=== PATIENT | female | born 1985 | race Hispanic/Latino ===

== ENCOUNTER 2020-03-29 07:08 | Emergency (ER) | payer SELFPAY ==
--- OUTSIDE RECORDS SUMMARY | 2020-03-29 07:11 | XMS REPORT | Summary of Care ---
:1985 Author Organization [facility] - [facility] Address [address] [place] [address] Care Team Providers Name Role Phone Mima Hilario [facility] Primary Care Provider [phone] Encounter Details Date Type Department Care Team Description 02/04/2020 Orders Only [facility] Doctor Unassigned, No [address] [facility] [place] [address] [address] [place] [address] Allergies Active Allergy Reactions Severity Noted Date Comments Penicillins Hives 04/01/2018 documented as of this encounter (statuses as of 02/04/2020) Medications No known medicationsdocumented as of this encounter (statuses as of 02/04/2020) Active Problems Problem Noted Date Contraceptive management 04/01/2018 IUD (intrauterine device) in place 04/01/2018 Well woman exam 10/18/2016 History of anemia 10/18/2016 Irregular menstrual cycle 10/18/2016 Obesity (BMI 30-39.9) 11/12/2012 Overview: ICD10 Diagnosis Term Dynamite Cartridge 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 Utility Tobacco use disorder 11/12/2012 documented as of this encounter (statuses as of 02/04/2020) Resolved Problems Problem Noted Date Resolved Date delivery delivered 09/20/2010 11/12/2012 Overview: ICD10 Diagnosis Term Dynamite Cartridge Crimper Utility documented as of this encounter (statuses as of 02/04/2020) Immunizations Name Administration Dates Next Due Td 09/19/2010 documented as of this encounter Social History Tobacco Use Types Packs/Day Years Used Date Current Some Day Smoker Cigarettes 0.1 6 Smokeless Tobacco: Never Used Comments: 3 cigarettes per day Alcohol Use Drinks/Week oz/Week Comments Yes 0 Standard drinks or equivalent 0.0 the weekends about 7 beers total Sex Assigned at Date Recorded Not on file Job Start Date Occupation Industry Not on file Not on file Not on file Travel History Travel Start Travel End No recent travel history available. documented as of this encounter Last Filed Vital Signs Not on filedocumented in this encounter Plan of Treatment Health Maintenance Due Date Last Done Comments VARICELLA VACCINES (1 of 2 1988 - 2-dose childhood series) DTaP,Tdap,and Td Vaccines 1998 09/19/2010 (1 - Tdap) Depression Screening 1999 INFLUENZA VACCINE (Season 05/03/2020 Ended) PAP SMEAR 04/01/2023 04/01/2018, 04/01/2018, 10/18/2016, Additional history exists PNEUMOCOCCAL 0-64 YEARS Aged Out No longe r eligible COMBINED SERIES based on patient 's age to complete this topic documented as of this encounter Procedures Procedure Name Priority Date/Time Associated Diagnosis Comme nts ASSIGNMENT OF BENEFITS Routine 02/04/2020 9:48 AM CDT documented in this encounter Results Not on filedocumented in this encounter Insurance Payer Benefit Plan Subscriber ID Effective Phone Address Typ e / Group Dates [facility] xxxxxxxxx 2016-Prese [phone] Medicaid WOMEN nt [address] [place] [address] documented as of this encounter Advance Directives Name Relationship Healthcare Agent Relationship Co mmunication Olimpia Torres Mother Primary healthcare agent
--- OUTSIDE RECORDS SUMMARY | 2020-03-29 07:11 | XMS REPORT | Continuity of Care Document ---
:1985 Author Organization [facility] t Address [address] [place] [address] Care Team Providers Name Role Phone Nnamdi Ramos MATA Attending Clinician Doctor Unassigned, Name Attending Clinician Unavailable Problems This patient has no known problems. Allergies, Adverse Reactions, Alerts This patient has no known allergies or adverse reactions. Medications This patient has no known medications. Procedures This patient has no known procedures. Encounters Start End Encounter Admission Attending Care Care Encounter Source Date/Time Date/Time Type Type Clinicians Facility Department ID 2020-02-15 2020-02-15 Office MARISOL Coto [id number] 08:43:54 09:49:43 Visit Avelina Beasley FINISHING AND SHIPPING SUPERVISOR [id number] [facility] [id number] MATERNAL [id number] & CHILD [address] [place] [address] 2020-02-15 2020-02-15 Orders Doctor MICHAEL [id number] 00:00:00 00:00:00 Only Unassigned, HUMA [id number] [place] [facility] [id number] Results This patient has no known results.
--- OUTSIDE RECORDS SUMMARY | 2020-03-29 07:12 | XMS REPORT | Summary of Care ---
:1985 Author Organization [facility] Address [address] [place] [address] Care Team Providers Name Role Phone Mima Hilario [facility] Primary Care Provider [phone] Reason for Visit Reason Comments Appointment started on cycle, asking if she needs to reschedule appt Encounter Details Date Type Department Care Team Description 02/12/2020 Telephone [facility]- Mima Hilario [place] ointment (started OPAL Tenorio on cycle, asking if [address] [place] [address] she needs to [address] ALE A reschedule appt) [place], [place] [id number] [phone] Allergies Active Allergy Reactions Severity Noted Date Comments Penicillins Hives 04/01/2018 documented as of this encounter (statuses as of 02/12/2020) Medications No known medicationsdocumented as of this encounter (statuses as of 02/12/2020) Active Problems Problem Noted Date Contraceptive management 04/01/2018 IUD (intrauterine device) in place 04/01/2018 Well woman exam 10/18/2016 History of anemia 10/18/2016 Irregular menstrual cycle 10/18/2016 Obesity (BMI 30-39.9) 11/12/2012 Overview: ICD10 Diagnosis 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 Utility Tobacco use disorder 11/12/2012 documented as of this encounter (statuses as of 02/12/2020) Resolved Problems Problem Noted Date Resolved Date delivery delivered 09/20/2010 11/12/2012 Overview: ICD10 Diagnosis 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 Utility documented as of this encounter (statuses as of 02/12/2020) Immunizations Name Administration Dates Next Due Td 09/19/2010 documented as of this encounter Social History Tobacco Use Types Packs/Day Years Used Date Current Some Day Smoker Cigarettes 0.1 6 Smokeless Tobacco: Never Used Comments: 3 cigarettes per day Alcohol Use Drinks/Week oz/Week Comments Yes 0 Standard drinks or equivalent 0.0 occasional Sex Assigned at Date Recorded Not on file Job Start Date Occupation Industry Not on file Not on file Not on file Travel History Travel Start Travel End No recent travel history available. COVID-19 Exposure Response Date Recorded In the last month, have you been in contact with No / Unsure 02/04/2020 10:08 AM CDT someone who was confirmed or suspected to have Coronavirus / COVID-19? documented as of this encounter Last Filed Vital Signs Not on filedocumented in this encounter Plan of Treatment Date Type Specialty Care Team Description 02/15/2020 Office Visit OB Satellites Avelina Coto, BLOWING ENGINEER [address] [place], [place] [address] [phone] Health Maintenance Due Date Last Done Comments VARICELLA VACCINES (1 of 2 - 1988 2-dose childhood series) PNEUMOCOCCAL 0-64 YEARS COMBINED 1993 SERIES (1 of 1 - PPSV23) DTaP,Tdap,and Td Vaccines (1 - 1998 09/19/2010 Tdap) INFLUENZA VACCINE (Season Ended) 2020 Depression Screening 02/03/2021 02/04/2020 PAP SMEAR 04/01/2023 04/01/2018, 04/01/2018, 10/18/2016, Additional history exists documented as of this encounter Results Not on filedocumented in this encounter Insurance Payer Benefit Plan Subscriber ID Effective Phone Address Typ e / Group Dates [facility] xxxxxxxxx 2016-Prese [phone] [address] Medicaid WOMEN nt [address] [place] [address] documented as of this encounter Advance Directives Name Relationship Healthcare Agent Relationship Co mmunication Olimpia Torres Mother Primary healthcare agent
--- OUTSIDE RECORDS SUMMARY | 2020-03-29 07:12 | XMS REPORT | Summary of Care ---
:1985 Author Organization [facility] Address [address] [place] [address] Care Team Providers Name Role Phone Mima Hilario [facility] Primary Care Provider [phone] Reason for Visit Reason Comments Well Woman Exam Encounter Details Date Type Department Care Team Description 02/04/2020 Office Visit [facility]- Luis Hilario, [facility] [address] [facility] [place], [place] [id number] Well woman exam (Primary Dx); Annelise Serna, [facility] [address] [facility] [address] [place] [address] [phone] IUD (intrauterine device) in place; [address] [place] Provider, [facility] Tem Obesity (BMI 30-39.9); Street Tobacco use disorder; [place], [place] Patient desires [phone] Allergies Active Allergy Reactions Severity Noted Date [...] (BMI 30-39.9) 11/12/2012 Overview: ICD10 Diagnosis Term 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 Utility Tobacco use disorder 11/12/2012 documented as of this encounter (statuses as of 02/04/2020) Resolved Problems Problem Noted Date Resolved Date delivery delivered 09/20/2010 11/12/2012 Overview: ICD10 Diagnosis Term 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 Utility documented as of this encounter (statuses as of 02/04/2020) Immunizations Name Administration Dates Next Due Td 09/19/2010 documented as of this encounter Social History Tobacco Use Types Packs/Day Years Used Date Current Some Day Smoker Cigarettes 0.1 6 Smokeless Tobacco: Never Used Tobacco Cessation: Counseling Given: Yes Comments: 3 cigarettes per day Alcohol Use [...] of this encounter Last Filed Vital Signs Vital Sign Reading Time Taken Comments Blood Pressure 138/91 02/04/2020 10:09 AM CDT Pulse 73 02/04/2020 10:09 AM CDT Temperature 36.3 C (97.4 F) 02/04/2020 10:09 AM CDT Respiratory Rate 16 02/04/2020 10:09 AM CDT Oxygen Saturation - - Inhaled Oxygen Concentration - - Weight 79.6 kg (175 lb 7 oz) 02/04/2020 10:09 AM CDT Height 152.4 cm (5') 02/04/2020 10:09 AM CDT Body Mass Index 34.26 02/04/2020 10:09 AM CDT documented in this encounter Progress Notes Annelise Feng, OPAL - 02/04/2020 9:45 AM CDT Chief complaint: Chief Complaint Patient presents with Well Woman Exam HPI Patient presents for WWE. She is not due for cervical cancer screening today. Patient has IUD in place at this time but would like it removed as she desires . I advised that she should begin taking PNVs to prepare for . I also discussed tobacco cessation. Histories OB History Para Term AB Living 2 2 2 2 SAB TAB Ectopic Multiple Live Births 2 # Outcome Date GA Lbr Jaspal/2nd Weight Sex Delivery Anes PTL Lv 2 Term 1 Term Past Medical History: Diagnosis Date Anemia unsure History of anemia 10/18/2016 Irregular menstrual cycle 12/2017 ongoing STD (sexually transmitted disease) Chlamydia; both patient and partner treated 2003 Vision impairment wears glasses Family History Problem Relation Age of Onset Heart Father CT High cholesterol Father Breast Cancer Maternal Grandmother <50yrs No Significant Medical Problems Mother No Significant Medical Problems Sister No Significant Medical Problems Brother No Significant Medical Problems Maternal Aunt Colon Cancer Maternal Uncle No Significant Medical Problems Paternal Uncle Arthritis NoFHx Asthma NoFHx defects NoFHx Ovarian Cancer NoFHx Uterine Cancer NoFHx Cancer NoFHx Depression NoFHx Diabetes NoFHx Genetic NoFHx Hypertension NoFHx Mental retardation NoFHx Neurological NoFHx Osteoporosis NoFHx Psychiatry NoFHx Other - see comments NoFHx Family Status Relation Name Status Fa Alive MGMo Mo Alive Sis (Not Specified) Bro (Not Specified) MAunt (Not Specified) MUnc (Not Specified) PUnc (Not Specified) MGFa PGMo PGFa NoFHx (Not Specified) Past Surgical History: Procedure Laterality Date SECTION Social History Socioeconomic History Marital status: Single Spouse name: Not on file Number of children: 2 Years of education: 11 Highest education level: Not on file Occupational History 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: [employer] Social Needs Financial resource strain: Not on file Food insecurity: Worry: Not on file Inability: Not on file Transportation needs: Medical: Not on file Non-medical: Not on file Tobacco Use Smoking status: Current Some Day Smoker Packs/day: 0.10 Years: 6.00 Pack years: 0.60 Types: Cigarettes Smokeless tobacco: Never Used Tobacco comment: 3 cigarettes per day Substance and Sexual Activity Alcohol use: Yes Alcohol/week: 0.0 standard drinks Comment: occasional Drug use: No Sexual activity: Yes Partners: Male control/protection: IUD Comment: last sexual intercourse 01/28/2020 Lifestyle Physical activity: Days per week: Not on file Minutes per session: Not on file Stress: Not on file Relationships Social connections: Talks on phone: Not on file Gets together: Not on file Attends hoahaoism service: Not on file Active member of club or organization: Not on file Attends meetings of clubs or organizations: Not on file Relationship status: Not on file Intimate partner violence: Fear of current or ex partner: Not on file Emotionally abused: Not on file Physically abused: Not on file Forced sexual activity: Not on file Other Topics Concern Service Not Asked Blood Transfusions No Caffeine Concern Not Asked Occupational Exposure Not Asked Hobby Hazards Not Asked Sleep Concern Not Asked Stress Concern Not Asked Weight Concern Not Asked Special Diet Not Asked Back Care Not Asked Exercise Not Asked Bike Helmet Not Asked Seat Belt Not Asked Self-Exams Not Asked Social History Narrative Pt states hoahaoism preference is Episcopal Lives with mother and children, no domestic violence at home. Social History Substance and Sexual Activity Sexual Activity Yes Partners: Male control/protection: IUD Comment: last sexual intercourse 01/28/2020 Labs No new labs Radiology No new radiology. Allergies Annelise is allergic to pcn [penicillins]. Medications Annelise currently has no medications in their medication list. Review of Systems Constitutional: Negative. HENT: Negative. Respiratory: Negative. Cardiovascular: Negative. Gastrointestinal: Negative. Genitourinary: Negative. Musculoskeletal: Negative. Psychiatric/Behavioral: Negative. BP (!) 138/91 (BP Location: Right arm, Patient Position: Sitting, BP CUFF SIZE: Adult Medium) | Pulse 73 | Temp 36.3 C (97.4 F) (Oral) | Resp 16 | Ht 5' (1.524 m) | Wt 175 lb 7 oz (79.6 kg) |LMP 01/03/2020 | BMI 34.26 kg/m Pregravid BMI: Could not be calculated Physical Exam Vitals reviewed. Constitutional: She is oriented to person, place, and time. She appears well- developed, well-nourished and well-groomed. Her body habitus is obese. Cardiovascular: Regular rate and rhythm. Pulmonary/Chest: Normal inspiratory effort. Neuro/Psychiatric: She has a normal mood and affect. She is oriented to person, place, and time. Assessment/Plan Well woman exam (primary encounter diagnosis) Comment: Appears to be in stable condition at this time Plan: Routine follow up IUD (intrauterine device) in place Comment: Desires removal for conception Plan: f/u as scheduled for removal Obesity (BMI 30-39.9) Comment: Nutritional education and guidance needed at each visit. Plan: Encourage healthy food choices and monitor weight gain at each visit. Tobacco use disorder Comment: Declined cessation counseling Plan: f/u at NOV Patient desires Comment: Needs IUD removal Plan: f/u as scheduled Return to clinic in 1-2 weeks. This visit did not involve counseling and coordination that comprised more than 50% of the visit time. Kelin Pichardo LVN - 02/04/2020 9:45 AM CDT34 year old presented to the clinic for WWE. 1) Previous BCM: IUD-Paragard inserted 09/2010 2) Desired BCM: condoms 3) LMP: 01/03/2020 4) Last [place]:01/28/2020 5) Last Pap:04/01/2018 Results:negative 6) Tdap in last 10 years?2010 HPV?unknown 7) C/O Heavy cycles, severe cramping 8) Patient denies history of physical, emotional, or sexual abuse. Patient states she currently feels safe at home. documented in this encounter Plan of Treatment Date Type Specialty Care Team Description 02/15/2020 Office Visit OB Loss Avelina Coto, ALUM PLANT OPERATOR [address] [place], [place] [address] [phone] Health Maintenance Due Date Last Done Comments [...] Results Not on filedocumented in this encounter Visit Diagnoses Diagnosis Well woman exam - Primary Routine general medical examination at a health care facility IUD (intrauterine device) in place Presence of intrauterine contraceptive d evice Obesity (BMI 30-39.9) Obesity, unspecified Tobacco use disorder Patient desires Unspecified procreative management documented in this encounter Insurance Payer Benefit Plan Subscriber ID Effective Phone Address Typ e / Group Dates [facility] xxxxxxxxx 2016-Shyam [phone] [address] Medicaid WOMEN nt [address] [place] [address] documented as of this encounter Advance Directives Name Relationship Healthcare Agent Relationship Co mmunication Olimpia Torres Mother Primary healthcare agent ([place])"
--- OUTSIDE RECORDS SUMMARY | 2020-03-29 07:12 | XMS REPORT | Summary of Care ---
:1985 Author Organization [facility] Address [address] [place] [address] Care Team Providers Name Role Phone Mima Hilario [facility] Primary Care Provider [phone] Reason for Visit Reason Comments Well Woman Exam Encounter Details Date Type Department Care Team Description 02/04/2020 Office Visit [facility]- Luis Hilario, [facility] [address] [facility] [place], [place] [id number] Well woman exam (Primary Dx); Annelise Serna, [facility] [address] [facility] [address] [place] [address] [phone] IUD (intrauterine device) in place; [address] [place] Provider, [facility] Tem Obesity (BMI 30-39.9); Street Tobacco use disorder; [place], [place] Patient [place] [phone] Allergies Active Allergy [...] (BMI 30-39.9) 11/12/2012 Overview: ICD10 Diagnosis Term Superintendent Plant Protection Utility Tobacco use disorder 11/12/2012 documented as of this encounter (statuses as of 02/04/2020) Resolved Problems Problem Noted Date Resolved Date delivery delivered 09/20/2010 11/12/2012 Overview: ICD10 Diagnosis Term Superintendent Plant Protection Utility documented as of this encounter (statuses [...] Problem Relation Age of Onset Heart Father [place] High cholesterol Father Breast Cancer Maternal Grandmother [...] level: Not on file Occupational History 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 Patient states she currently feels safe at home. documented in this encounter Plan of Treatment Date Type Specialty Care Team Description 02/15/2020 Office Visit OB Loss Avelina Coto, SUPERVISOR TUNNEL HEADING [address] [place], [place] [address] [phone] Health Maintenance Due Date Last Done Comments [...] Address Typ e / Group Dates [facility] xxxxxxxxx 2016-Shyam [phone] [address] Medicaid WOMEN nt [address] [place] [address] documented as of this encounter Advance Directives Name Relationship Healthcare Agent Relationship Co mmunication Olimpia Torres Mother Primary healthcare agent ([place])"
--- OUTSIDE RECORDS SUMMARY | 2020-03-29 07:12 | XMS REPORT | Summary of Care ---
:1985 Author Organization [facility] Address [address] [place] [address] Care Team Providers Name Role Phone Mima Hilario [facility] Primary Care Provider [phone] Reason for Visit Reason Comments INTRAUTERINE DEVICE removal Encounter Details Date Type Department Care Team Description 02/15[facility]oto [facility]artur for IUD removal (Primary Dx); ADOLFO Melendez Encounter for initial prescription of co ntraceptive pills [address] [place] [address] [address] [place], [place] [phone] Allergies Active Allergy Reactions Severity Noted Date Comments Penicillins Hives 04/01/2018 documented as of this encounter (statuses as of 02/15/2020) Medications Medication Sig Dispensed Refills Start Date End Date Status norgestimate-ethinyl Take 1 tablet by 4 Package 9 02/15/2020 Active estradiol (ORTHO mouth daily. 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 documented as of this encounter Last Filed Vital Signs Vital Sign Reading Time Taken Comments Blood Pressure 127/81 02/15/2020 9:03 AM CDT Pulse 108 02/15/2020 9:03 AM CDT Temperature 36.3 C (97.3 F) 02/15/2020 9:03 AM CDT Respiratory Rate 16 02/15/2020 9:03 AM CDT Oxygen Saturation - - Inhaled Oxygen Concentration - - Weight 78.5 kg (173 lb 1 oz) 02/15/2020 9:03 AM CDT Height 152.4 cm (5') 02/15/2020 9:03 AM CDT Body Mass Index 33.8 02/15/2020 9:03 AM CDT documented in this encounter Patient Instructions Patient InstructionsLou Calhoun RN - 02/15/2020 8:45 AM CDT Patient Education Control: The Pill control pills contain hormones that help prevent . The pills are prescribed by your healthcare provider. There are many types of control pills available. If you have side effects from one type of pill, tell your healthcare provider. He or she may be able to prescribe a pill that works better for you. rates Talk to your healthcare provider about the effectiveness of this control method. Using the pill Take one pill daily. Take it at around the same time each day. Follow your healthcare providers guidelines on when to start your first pack of pills. You mayneed to use another form of control for a week or more after you start. Know what to do if you forget to take a pill. (Consult your healthcare provider or check the package.) If you miss more than one pill, you may need to use a backup method of control for a weekor more. Pros Low rate No interruption to sex Easy to use Can help make periods more regular May lower your risk of ovarian cysts and certain cancers May decrease menstrual cramps, menstrual flow, and acne Cons Does not protect against sexually transmittedinfection (STIs) Requires taking a pill on time each day May not work as well when taken with certain other medicines (check with your pharmacist) May cause side effects such as nausea, irregular bleeding, headaches, breast tenderness, fatigue,or mood changes (these often go away within 3 months) May increase the risk of blood clots,heart attack, and stroke The pill may not be for you The pill may not be for you if: You are a smoker and over age 35 You havehigh blood pressureor gallbladder, liver, cerebrovascular or heart disease You have diabetes, migraines, blood clot in the vein or artery, lupus, depression, certain lipid disorders, or take medicines that interfere with the pill In these cases, discuss the risks with your healthcare provider. [employer] last reviewed this educational content on 10/31/201619993270-4564 [facility]. [address] [place] [address]. All rights reserved. This information is not intended as a substitute for professional medical care. Always follow your healthcare professional's instructions. documented in this encounter Progress Notes Avelina Coto, UNHAIRER - 02/15/2020 8:45 AM CDTIUD REMOVAL PROCEDURE NOTE Preoperative Diagnoses: IUD Remval The risks, benefits and alternatives were discussed. The patient voiced her understanding. She wished to proceed and an informed consent was obtained. Patient has been identified by name and and will be undergoing IUD removal. Patient, procedure and site have been confirmed by the following clinicians: ADOLFO Burnett and Usha Calhoun RN . Timeout performed by ADOLFO Burnett at 0935. Procedure: The patient is placed on the exam table in a supine position. Vaginal speculum inserted.The cervix and IUD strings are visualized. IUD strings are grasped with the ring forceps and firm pressure applied to deliver the IUD through the cervical os. The patient experienced no cramping duringremoval,which resolved spontaneously prior to discharge. The vaginal speculum was removed. The patient tolerated the procedure well and there were no complications. Post-procedure instructions given. Patient verbalized understanding. Findings/Assessment IUD removed without complaints Plan Encounter for IUD removal (primary encounter diagnosis) Encounter for initial prescription of contraceptive pills Comment: IUD removal Plan: norgestimate-ethinyl estradiol (ORTHO TRI-CYCLEN LO, 28,) 0.18/0.215/0.25 mg-25 mcg tablet Patient will RTC in 3 months for Blood pressure check and refill. Return to clinic in 12 weeks. Discussed treatment options. Medications as ordered. Reviewed patient instructions and provided printed copy. ADOLFO Burnett 02/15/2020 11:04 AM Lou Calhoun RN - 02/15/2020 8:45 AM CDTPt in clinic for IUD removal. Informed consent signed and obtained from patient, risks reviewed, Pt verbalized understanding. Patient present for ocp start. Dispensed patient [id number] x 4 pack Lot #[id number] Cont.884-[id number] exp 12/2020 Patient provided with education both written and verbal on control method chosen. Instructed patient to use a back up method for one month. Advised patient to RTC in 3 months for OCP follow up. Patient verbalized understanding. documented in this encounter Plan of Treatment Date Type Specialty Care Team Description 05/10/2020 Office Visit [facility] Avelina Coto FNP [address] [place], [place] [address] [phone] Health Maintenance Due Date Last Done Comments INFLUENZA VACCINE (Season 05/03/2020 Ended) VARICELLA VACCINES (1 of 2 10/05/2020 Postp oned from - 2-dose childhood series) 08/04 (Insurance / Financial) PNEUMOCOCCAL 0-64 YEARS 10/21/2020 Postpone d from COMBINED SERIES (1 of 1 - 1992 (Insurance / PPSV23) Financial) DTaP,Tdap,and Td Vaccines 11/11/2020 09/19/2010 Postpo luis from (1 - Tdap) 1998 (Insu sophia / Financial) Depression Screening 02/03/2021 02/04/2020 PAP SMEAR 04/01/2023 04/01/2018, 04/01/2018, 10/18/2016, Additional history exists documented as of this encounter Results Not on filedocumented in this encounter Visit Diagnoses Diagnosis Encounter for IUD removal - Primary Encounter for removal of intrauterine co ntraceptive device Encounter for initial prescription of co ntraceptive pills General counseling for prescription of o ral contraceptives documented in this encounter Insurance Payer Benefit Plan Subscriber ID Effective Phone Address Typ e / Group Dates [facility] xxxxxxxxx 2016-Prese [phone] Medicaid [place]OMEN nt 00 [id number] [place] [address] documented as of this encounter Advance Directives Name Relationship Healthcare Agent Relationship Co mmunication Olimpia Torres Mother Primary healthcare agent
--- OUTSIDE RECORDS SUMMARY | 2020-03-29 07:13 | XMS REPORT | Summary of Care ---
:1985 Author Organization [facility] Address [address] [place] [address] Care Team Providers Name Role Phone Mima Hilario 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 [employer] last reviewed this educational content on 10/31/201619996885-2258 [employer]. [address] [place] [address]. All rights reserved. This information is not intended as a substitute for professional medical care. Always follow your healthcare professional's instructions. documented in this encounter Progress Notes Avelina Coto, DRIVER - 02/15/2020 8:45 AM CDTIUD REMOVAL PROCEDURE [...] Patient present for ocp start. Dispensed patient [id number] x 4 pack Lot #[id number] Cont.884-[id number] exp 12/2020 Patient provided with education both written and verbal on control method chosen. Instructed patient to use a back up method for one month. Advised patient to RTC in 3 months for OCP follow up. Patient verbalized understanding. documented in this encounter Plan of Treatment Date Type Specialty Care Team Description 05/10/2020 Office Visit [facility] Avelina Coto FNP [address] [place], [place] [address] [phone] Health Maintenance Due Date Last Done Comments [...] Phone Address Typ e / Group Dates [facility] xxxxxxxxx 2016-Prese [phone] Medicaid WOMEN nt 00 [id number] [place] [address] documented as of this encounter Advance Directives Name Relationship Healthcare Agent Relationship Co mmunication Olimpia Torres Mother Primary healthcare agent
--- OUTSIDE RECORDS SUMMARY | 2020-03-29 07:13 | XMS REPORT | Summary of Care ---
:[address] [facility] - Health Address [address] [place] [address] Care Team Providers Name Role Phone Mima Hilario [facility] Primary Care Provider [phone] Encounter Details Date Type Department Care Team Description 02/15/[address] [facility] Doctor Unassigned, No [address] [facility] [place] [address] [address] [place] [address] Allergies Active Allergy Reactions Severity Noted Date Comments Penicillins Hives 04/01/2018 documented as of this encounter (statuses as of 02/18/2020) Medications Medication Sig Dispensed Refills Start Date End Date Status norgestimate-ethinyl Take 1 tablet by 4 Package 9 02/15/2020 Active estradiol (ORTHO mouth daily. 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 Tobacco use disorder 11/12/2012 documented as of this encounter (statuses as of 02/18/2020) Resolved Problems Problem Noted Date Resolved Date delivery delivered 09/20/2010 11/12/2012 Overview: ICD10 Diagnosis Term Brick Molder Hand Utility documented as of this encounter (statuses as of 02/18/2020) Immunizations Name Administration Dates Next Due Td [...] Description 05/10/2020 Office Visit [facility] Avelina Coto, CLINIC SUPERVISOR [address] [place] [address] [phone] Health Maintenance Due Date Last Done Comments [...] history exists documented as of this encounter Procedures Procedure Name Priority Date/Time Associated Diagnosis Comme nts DISCLOSURE AND CONSENT, Routine 02/15/2020 12:01 AM MEDICAL AND SURGICAL CDT PROCEDURES documented in this encounter Results Not on filedocumented in this encounter Insurance Payer Benefit Plan Subscriber ID Effective Phone Address Typ e / Group Dates [facility] xxxxxxxxx 2016-Prese [phone] Medicaid WOMEN nt [address] [place] [address] documented as of this encounter Advance Directives Name Relationship Healthcare Agent Relationship Co mmunication Olimpia Torres Mother Primary healthcare agent [phone] ([place])
--- NOTE | 2020-03-29 08:41 | ER ---
Nurse's Notes [facility] Name: Annelise Torres Age: 34 yrs Sex: Female : 1985 Arrival Date: 03/29/2020 Time: 07:13 Bed 5 Private MD: Diagnosis: Acute pharyngitis Presentation: 03/29 07:28 Chief complaint: Patient states: c/o sore throat with right ear pain x4 days; denies jr10 cough, fever, chills, body aches, n/v/d; states that she works at [employer] and a coworker of hers tested positive for COVID 2 weeks ago. Coronavirus screen: Patient denies a cough. Patient denies shortness of breath or difficulty breathing. Patient denies measured and/or subjective temperature greater than 100.4F prior to today's visit. Patient denies travel on a cruise ship or to a country the [facility] currently lists as an affected area. Patient reports contact with known and/or suspected case of COVID-19. Patient instructed to continue to wear a mask when interacting with others. Patient moved to private room, placed in contact and droplet isolation with eye protection until further assessment. Ebola Screen: No symptoms or risks identified at this time. Initial Sepsis Screen: Does the patient meet any 2 criteria? No. Patient's initial sepsis screen is negative. Does the patient have a suspected source of infection? No. Patient's initial sepsis screen is negative. Risk Assessment: Do you want to hurt yourself or someone else? Patient reports no desire to harm self or others. Onset of symptoms was March 25, 2020. 07:28 Method Of Arrival: Ambulatory jr10 07:28 Acuity: GEORGIE 4 jr10 Historical: - Allergies: 07:30 PENICILLINS; jr10 - Home Meds: 07:30 None [Active]; jr10 - PMHx: 07:30 Migraines; jr10 - Immunization history:: Adult Immunizations up to date. - Social history:: Smoking status: Patient reports the use of cigarette tobacco products, denies chronic smoking, but will smoke occasionally, Patient uses alcohol, only on a social basis. Screenin:26 Abuse screen: Denies threats or abuse. Denies injuries from another. Nutritional jr10 screening: No deficits noted. Tuberculosis screening: No symptoms or risk factors identified. Fall Risk None identified. Assessment: 08:24 Reassessment: see triage note. General: Appears in no apparent distress. Behavior is jr10 calm, cooperative, appropriate for age. Pain:. Cardiovascular: No deficits noted. Respiratory: No deficits noted. GI: No deficits noted. : No deficits noted. EENT: Oral mucosa is moist. Throat is clear Reports pain when swallowing since 4 days ago right ear pain. Derm: No deficits noted. Musculoskeletal: No deficits noted. Vital Signs: 07:28 BP 184 / 114; Pulse 92; Resp 18; Pulse Ox 100% on R/A; jr10 08:23 BP 141 / 84; Pulse 73; Resp 18; Temp 97.9; Pulse Ox 100% on R/A; jr10 09:22 BP 132 / 81; Pulse 76; Resp 18; Pulse Ox 100% on R/A; jr10 ED Course: 07:13 Patient arrived in ED. am2 07:15 Usman Coffey PA is PHCP. cp 07:15 Darling Patel MD is Attending Physician. cp 07:22 Kenia Warner, VICKY is Primary Nurse. jr10 07:30 Triage completed. jr10 07:31 Arm band placed on. jr10 08:26 Patient has correct armband on for positive identification. Bed in low position. Call jr10 light in reach. Side rails up X2. Pulse ox on. NIBP on. 08:26 No provider procedures requiring assistance completed. Patient did not have IV access jr10 during this emergency room visit. Administered Medications: No medications were administered Outcome: 08:40 Discharge ordered by . cp 09:22 Discharged to home ambulatory. jr10 09:22 Condition: good 09:22 Discharge instructions given to patient, Instructed on discharge instructions, follow up and referral plans. self quarantine until COVID test has resulted Demonstrated understanding of instructions, follow-up care, medications, Prescriptions given X 1. 09:23 Patient left the ED. jr10 Addendum: 03/31/2020 12:29 Addendum: COVID-19 Result: Negative result given to RN to notify pt. Notified pt of d m5 negative COVID 19 swab results. Pt advised that even with a negative test result they should remain in isolation until symptom free for 3 days without medication. Pt also advised to return to the ED for worsening symptoms. Signatures: Elizabeth Gutierrez, RN RN dm5 Usman Coffey PA PA cp Moreno, Amanda am2 Kenia Warner RN RN jr10 Corrections: (The following items were deleted from the chart) 03/29 08:24 08:23 BP 141 / 84; Pulse 91bpm; Resp 18bpm; Pulse Ox 100% RA; Temp 97.9F; jr10 jr10
--- NOTE | 2020-03-29 08:41 | EDPHYS ---
Physician Documentation [facility] Name: Annelise Torres Age: 34 yrs Sex: Female : 1985 Arrival Date: 03/29/2020 Time: 07:13 Bed 5 Private MD: ED Physician Darling Patel HPI: 03/29 07:32 This 34 yrs old Female presents to ER via Ambulatory with complaints of Ear cp Pain, Sore Throat. 07:32 The patient presents with pain, that is acute. The complaints affect the right ear. cp Onset: The symptoms/episode began/occurred 4 day(s) ago, and became worse yesterday. 07:32 Associated signs and symptoms: Pertinent positives: sore throat, Pertinent negatives: cp cough, fever, sinus trouble, vomiting. Patient reports close contact with co-worker who tested positive for COVID-19. Historical: - Allergies: 07:30 PENICILLINS; jr10 - Home Meds: 07:30 None [Active]; jr10 - PMHx: 07:30 Migraines; jr10 - Immunization history:: Adult Immunizations up to date. - Social history:: Smoking status: Patient reports the use of cigarette tobacco products, denies chronic smoking, but will smoke occasionally, Patient uses alcohol, only on a social basis. ROS: 07:35 ENT: Positive for ear pain, sore throat, Negative for drainage from ear(s), sinus pain, cp difficulty swallowing, difficulty handling secretions. 07:35 Constitutional: Negative for body aches, chills, fever, poor PO intake. cp 07:35 Respiratory: Negative for cough, shortness of breath, wheezing. 07:35 Abdomen/GI: Negative for abdominal pain, nausea, vomiting, and diarrhea. 07:35 Skin: Negative for rash. 07:35 Neuro: Negative for altered mental status, headache. 07:35 All other systems are negative. Exam: 07:40 Constitutional: The patient appears in no acute distress, alert, awake, non-toxic, well cp developed, well nourished. 07:40 Head/Face: Normocephalic, atraumatic. cp 07:40 Eyes: Periorbital structures: appear normal, Conjunctiva: normal, no exudate, no injection, Lids and lashes: appear normal, bilaterally. 07:40 ENT: External ear(s): are unremarkable, Ear canal(s): are normal, clear, TM's: dullness, bilaterally, Nose: is normal, Mouth: Lips: moist, Oral mucosa: pink and intact, moist, Gums: normal with healthy appearance, Posterior pharynx: Airway: no evidence of obstruction, patent, Tonsils: no enlargement, no exudate, swelling, is not appreciated, erythema, that is mild, exudate, is not appreciated. 07:40 Neck: Lymph nodes: no appreciated lymphadenopathy. 07:40 Chest/axilla: Inspection: normal. 07:40 Cardiovascular: Rate: normal, Rhythm: regular. 07:40 Respiratory: the patient does not display signs of respiratory distress, Respirations: normal, no use of accessory muscles, no retractions, labored breathing, is not present, Breath sounds: are clear throughout, no decreased breath sounds. 07:40 Abdomen/GI: Exam negative for discomfort, distension, guarding, Inspection: abdomen appears normal. Vital Signs: 07:28 BP 184 / 114; Pulse 92; Resp 18; Pulse Ox 100% on R/A; jr10 08:23 BP 141 / 84; Pulse 73; Resp 18; Temp 97.9; Pulse Ox 100% on R/A; jr10 09:22 BP 132 / 81; Pulse 76; Resp 18; Pulse Ox 100% on R/A; jr10 MDM: 07:22 Patient medically screened. cp 07:35 Differential diagnosis: otitis media, otitis externa, strep throat, COVID-19, influenza.cp 08:40 Data reviewed: vital signs, nurses notes, lab test result(s), and as a result, I will cp discharge patient. 08:40 Counseling: I had a detailed discussion with the patient and/or guardian regarding: the cp historical points, exam findings, and any diagnostic results supporting the discharge/admit diagnosis, lab results, to return to the emergency department if symptoms worsen or persist or if there are any questions or concerns that arise at home. 03/29 07:31 Order name: COVID-19 cp 03/29 07:31 Order name: Strep cp 03/29 08:19 Order name: Vital Signs: please recheck to include temp; Complete Time: 08:22 cp Administered Medications: No medications were administered Disposition: 08:45 Chart complete. cp Disposition: 03/29/20 08:40 Discharged to Home. Impression: Acute pharyngitis. - Condition is Stable. - Discharge Instructions: Pharyngitis. - Prescriptions for Ibuprofen 800 mg Oral Tablet - take 1 tablet by ORAL route every 8 hours As needed take with food; 30 tablet. - Medication Reconciliation Form, Thank You Letter, Antibiotic Education, Prescription Opioid Use form. - Work release form (03/29/20 10:13). bd - Follow up: Private Physician; When: 1 - 2 days; Reason: Worsening of condition. - Problem is new. - Symptoms have improved. Addendum: 04/03/2020 08:06 Co-signature as Attending Physician, Darling Patel MD. m a2 Signatures: Dispatcher [employer] EDMS Usman Coffey PA PA cp Darling Patel MD MD ma2 Kenia Warner RN RN jr10 Thea Kuhn bd Corrections: (The following items were deleted from the chart) 03/29 09:23 08:40 03/29/2020 08:40 Discharged to Home. Impression: Acute pharyngitis. Condition is jr10 Stable. Forms are Medication Reconciliation Form, Thank You Letter, Antibiotic Education, Prescription Opioid Use. Follow up: Private Physician; When: 1 - 2 days; Reason: Worsening of condition. Problem is new. Symptoms have improved. cp 03/30 07:53 03/29 08:42 Counseling: I had a detailed discussion with the patient and/or guardian cp regarding: the historical points, exam findings, and any diagnostic results supporting the discharge/admit diagnosis, lab results, to return to the emergency department if symptoms worsen or persist or if there are any questions or concerns that arise at home, cp
[2020-03-29 09:29] VITALS: O2SAT 100
[2020-03-29 09:30] VITALS: TEMP 97.9
[2020-03-29 09:31] VITALS: BP 132/81
== END 2020-03-29 09:23 | disposition home or self-care (01) ==
LOC: ER 07:08
DX: J02.9 Acute pharyngitis, unspecified (principal); Z20.828 Contact with and (suspected) exposure to other viral communicable diseases; F17.210 Nicotine dependence, cigarettes, uncomplicated; Z88.0 Allergy status to penicillin
CPT/HCPCS: 87070; 87081; 99283; U0001

== ENCOUNTER 2021-10-12 04:16 | Emergency (ER) | payer SELFPAY ==
--- OUTSIDE RECORDS SUMMARY | 2021-10-12 04:19 | XMS REPORT | Continuity of Care Document ---
:1985 Author Organization [facility] t Address [address] [place] [address] Care Team Providers Name Role Phone De DEAN Attending Clinician Unavailable Ramos COTO Attending Clinician Unavailable AKINSIPENNY, C Attending Clinician Unavailable Akincalpe WHMONAEP, C Attending Clinician Carin MATA R Attending Clinician Doctor Unassigned, Name Attending Clinician Unavailable Provider, Temp Attending Clinician Unavailable Ping JOSEPH Attending Clinician PING Attending Clinician Unavailable Payers Payer Name Policy Type Policy Number Effective Date Expiration Date Jm funez [id number] 2016 00:00:00 Advance Directives Directive Decision Effective Termination Comments Source Date Date Healthcare Agents on N/A [facility] FileNameRelationshUnited [facility] Agent Medical RelationshipCommunicationRewinslow indian healthcare centerca Branch [facility] [phone] (Home) Problems Condition Condition Condition Status Onset Resolution Last Treating Co mments Source Name Details Category Date Date Treatment Clinician Date Encounter Encounter Disease Active Uni vers for IUD for IUD 04-01 ity of removal removal 00:00: [address] IUD IUD Disease Active Univers (intrauter (intrauter 04-01 it y of ine ine 00:00: [place] device) in device) in [address] Branch Well woman Well woman Disease Active U nivers exam exam 2-16 ity of 00:00: [place] [address] Medical Branch History of History of Disease Active U nivers anemia anemia 2-16 ity of 00:00: [facility] Irregular Irregular Disease Active Uni vers menstrual menstrual 2-16 ity of cycle cycle 00:00: [facility] Obesity Obesity Disease Active Overview: Univ ers (BMI (BMI 3-13 ICD10 ity of 30-39.9) 30-39.9) 00:00: Diagnosis [place] as 00 Term [facility] [employer] Branch Utility Tobacco Tobacco Disease Active Univers use use 3-13 ity of disorder disorder 00:00: [facility] Allergies, Adverse Reactions, Alerts Allergy Allergy Status Severity Reaction(s) Onset Inactive Treating Comm ents Source Name Type Date Date Clinician Penicill Propensi Active Hives Univer s ins ty to 04-01 ity of adverse 00:00: [place] reaction 00 Medical s Branch PENICILL Drug Active Hives Univers INS Class 7 ity of 00:00: [facility] Social History Social Habit Start Date Stop Date Quantity Comments Source Sex Assigned At Universit y of [facility] Exposure to Not sure [place] of SARS-CoV-2 (event) [facility] History of tobacco Cigarette Smoker University of use [facility] Alcohol intake 2020-02-04 2020-02-04 Current drinker Unive rsity of 00:00:00 00:00:00 of alcohol [facility] (finding) Branch Alcohol Comment 2020-02-04 2020-02-04 occasional Universit y of 00:00:00 00:00:00 [facility] Tobacco use and 2020-02-04 2020-02-04 Never used Universit y of exposure 00:00:00 00:00:00 [facility] Cigarettes smoked 2020-02-04 2020-02-04 Univers ity of current (pack per 00:00:00 00:00:00 ) - Reported Branch Cigarette 2020-02-04 2020-02-04 University of pack-years 00:00:00 00:00:00 [facility] Tobacco Comment 2012-11-12 2012-11-12 3 cigarettes per Uni versity of 00:00:00 00:00:00 day [facility] Smoking Status Start Date Stop Date Source Current some day smoker 2020-02-04 00:00:00 Univ ersity of [facility] Medications Ordered Filled Start Stop Current Ordering Indication Dosage Frequency Signature Comments Components Source Medication Medication Date Date Medication? Clinician (SIG) Name Name norgestimat 2020-0 Yes [id number] 1{tbl} Take 1 Univers e-ethinyl 6-15 tablet by ity o f estradiol 00:00: mouth [place] (ORTHO 00 daily. [facility], 28,) 0.18/0.215/ 0.25 mg-25 mcg tablet norgestimat 2020-0 Yes [id number] 1{tbl} Take 1 Univers e-ethinyl 6-15 tablet by ity o f estradiol 00:00: mouth [place] (ORTHO 00 daily. [place] [address],) 0.18/0.215/ 0.25 mg-25 mcg tablet norgestimat 2020-0 Yes [id number] 1{tbl} Take 1 Univers e-ethinyl 6-15 tablet by ity o f estradiol 00:00: mouth [place] (ORTHO 00 daily. [facility], ,) 0.18/0.215/ 0.25 mg-25 mcg tablet norgestimat 2020-0 Yes [id number] 1{tbl} Take 1 Univers e-ethinyl 6-15 tablet by ity o f estradiol 00:00: mouth [place] (ORTHO 00 daily. [place] [address],) 0.18/0.215/ 0.25 mg-25 mcg tablet No known No Univers medications [facility] No known No Univers medications [facility] No known No Univers medications [facility] No known No Univers medications [facility] Immunizations Ordered Filled Immunization Date Status Comments Sour e Immunization Name Name Td 2010-09-19 Completed University of 00:00:00 [facility] Td 2010-09-19 Completed University of 00:00:00 [facility] Td 2010-09-19 Completed University of 00:00:00 [facility] Td 2010-09-19 Completed University of 00:00:00 [facility] Td 2010-09-19 Completed University of 00:00:00 [facility] Td 2010-09-19 Completed University of 00:00:00 [facility] Td 2010-09-19 Completed University of 00:00:00 [facility] Td 2010-09-19 Completed University of 00:00:00 [facility] Vital Signs Vital Name Observation Time Observation Value Comments Source Diastolic blood 2020-02-15 14:03:00 81 mm[Hg] Unive rsity of pressure [facility] Heart rate 2020-02-15 14:03:00 108 /min Universi ty of [facility] Body temperature 2020-02-15 14:03:00 36.28 Liv Univ ersity of [facility] Respiratory rate 2020-02-15 14:03:00 16 /min Univ ersity of [facility] Body height 2020-02-15 14:03:00 152.4 cm Universi ty [facility] Body weight 2020-02-15 14:03:00 78.501 kg [facility]i ty [facility] BMI 2020-02-15 14:03:00 33.80 kg/m2 [facility]i ty [facility] Systolic blood 2020-02-15 14:03:00 127 mm[Hg] Univer sity of pressure [facility] Diastolic blood 2020-02-15 14:03:00 81 mm[Hg] Unive rsity of pressure [facility] Heart rate 2020-02-15 14:03:00 108 /min Universi ty of [facility] Body temperature 2020-02-15 14:03:00 36.28 Liv Univ ersity of [facility] Respiratory rate 2020-02-15 14:03:00 16 /min Univ ersity of [facility] Body height 2020-02-15 14:03:00 152.4 cm [facility] Body weight 2020-02-15 14:03:00 78.501 kg [facility]i [facility] BMI 2020-02-15 14:03:00 33.80 kg/m2 [facility] ty [facility] Systolic blood 2020-02-15 14:03:00 127 mm[Hg] Univer sity of pressure [facility] Systolic blood 2020-02-04 15:09:00 138 mm[Hg] Univer sity of pressure [facility] Diastolic blood 2020-02-04 15:09:00 91 mm[Hg] Unive rsity of pressure [facility] Heart rate 2020-02-04 15:09:00 73 /min [facility]i ty [facility] Body temperature 2020-02-04 15:09:00 36.33 Liv Univ ersity of [facility] Respiratory rate 2020-02-04 15:09:00 16 /min [facility] Body height 2020-02-04 15:09:00 152.4 cm [facility] Body weight 2020-02-04 15:09:00 79.578 kg [facility] BMI 2020-02-04 15:09:00 34.26 kg/m2 [facility] Procedures Procedure Date / Time Performed Performing Clinician Sourc e DISCLOSURE AND 2020-02-15 05:01:00 Doctor Unassigned, No [facility] CONSENT, MEDICAL AND Name Medical [facility] SURGICAL PROCEDURES ASSIGNMENT OF BENEFITS 2020-02-04 14:48:18 Doctor Unassigned, No [facility] Medical Branch Encounters Start End Encounter Admission Attending Care Care Encounter Source Date/Time Date/Time Type Type Clinicians Facility Department ID 2021-02-07 2021-02-07 Outpatient Ramos DEAN [facility] [id number] Univers 10:30:00 10:30:00 DIONNA [facility] 2021-02-07 2021-02-07 Outpatient Ramos COTO [facility] [id number] Univers 10:15:00 10:15:00 MP [id number] ity o [facility] 2021-02-07 2021-02-07 Outpatient Ramos COTO [facility] [id number] Univers 10:15:00 10:15:00 MP ity o [facility] 2020-12-01 2020-12-01 Outpatient R AKINSHIVA, [facility] [id number] Univers 10:30:00 10:30:00 MIMA [id number] ity o [facility] 2020-12-01 2020-12-01 Outpatient R AKINSIPE, [facility] [id number] Univers 10:30:00 10:30:00 MIMA ity o [facility] 2020-10-06 2020-10-06 Outpatient AKINSHIVA, [facility] [id number] Univers 15:45:00 15:45:00 MIMA [id number] ity o [facility] 2020-10-06 2020-10-06 Outpatient R CHARLEEN, [facility] [id number] Univers 15:45:00 15:45:00 MIMA ity o f [facility] 2020-05-24 2020-05-24 Telephone [facility] [id number] Univers 00:00:00 00:00:00 Imma C TREASURY ASSISTANT [id number] ity of REGIONAL [id number] [place] as MATERNAL [phone] [facility] ical & CHILD [address] [place] [address] 2020-05-10 2020-05-10 Outpatient R CARIN [facility] [id number] Univers 09:30:00 09:30:00 ROSHUNDA [id number] ity o [facility] 2020-05-10 2020-05-10 [facility] [id number] Univers 09:30:00 09:30:00 ROSHUNDA ity o [facility] 2020-02-15 2020-02-15 Office [facility] [id number] 08:43:54 09:49:43 [facility]REASURY ASSIST[facility] [id number] REGIONAL [id number] MATERNAL [phone] & CHILD [address] [place] [address] 2020-02-15 2020-02-15 Office [facility] [id number] Univers 08:43:54 09:49:43 [facility] TREASURY ASSISTANT [id number] ity of REGIONAL [id number] [place] as MATERNAL [id number] [facility] [address] [place] [address] 2020-02-15 2020-02-15 Outpatient Ramos CARIN [facility] [id number] Univers 08:45:00 08:45:00 ROSHUNDA [id number] ity o [facility] 2020-02-15 2020-02-15 Outpatient R COTO [facility] [id number] Univers 08:45:00 08:45:00 ROSHUNDA ity o f [facility] 2020-02-15 2020-02-15 Tristan RODRIGUEZ [id number] 00:00:00 00:00:00 Only Unassigned, HUMA [id number] [facility] [id number] 2020-02-15 2020-02-15 Orders Doctor MICHAEL [id number] Univers 00:00:00 00:00:00 Only Unassigned, HUMA [id number] ity of [facility] [id number] [place] as [phone] [address] 2020-02-12 2020-02-12 [facility] 1.2.840.114 [id number] Univers 00:00:00 00:00:00 Mima Duff TREASURY ASSISTANT [id number] ity of [facility] [id number] [place] as MATERNAL [id number] [facility] ical & CHILD [address] [place] [address] 2020-02-08 2020-02-08 [facility] [id number] Univers 10:45:00 10:45:00 MP supriyay o [facility] 2020-02-08 2020-02-08 [facility] [id number] Univers 10:45:00 10:45:00 MP parra o [facility] 2020-02-04 2020-02-04 Office Provider, [facility] 1 .2.840.114 [id number] Univers 09:50:41 10:48:33 Visit Mima Hilario TREASURY ASSISTANT [id number]. 10 ity of Annelise Feng [facility] [id number] [place] MATERNAL [phone] [facility] ical & CHILD [address] [place] [address] 2020-02-04 2020-02-04 Outpatient R [facility] [id number] Univers 09:45:00 09:45:00 ity [facility] 2020-02-04 2020-02-04 Outpatient R [facility] [id number] Univers 09:45:00 09:45:00 ity [facility] 2020-02-04 2020-02-04 [facility] [id number] Univers 09:45:00 09:45:00 ANNELISE parra o f [facility] 2020-02-04 2020-02-04 Orders Doctor MICHAEL [id number] [id number] Univers 00:00:00 00:00:00 Only Unassigned, HUMA [id number] ity of Trion [facility] [id number] [facility] as [id number] [address] 2020-02-02 2020-02-02 Outpatient R [facility] [id number] Univers 12:45:00 12:45:00 [id number] ity of [facility] Results This patient has no known results.
[2021-10-12] MEDS ORDERED: HYDROCODONE/APAP 10/325 TAB ONE (04:42)
[2021-10-12 06:35] LABS: SARS-COV-2 RT PCR NEGATIVE (NEGATIVE)
--- NOTE | 2021-10-12 06:42 | ER ---
Nurse's Notes [facility] Name: Annelise Torres Age: 36 yrs Sex: Female : 1985 Arrival Date: 10/12/2021 Time: 04:19 Bed 23 Private MD: Diagnosis: Acute sinusitis, unspecified;Headache Presentation: 10/12 04:36 Chief complaint: Patient states: headache, sinus pressure and sore throat for the past 5 week. Coronavirus screen: Vaccine status: Patient reports being unvaccinated. Ebola Screen: No symptoms or risks identified at this time. Initial Sepsis Screen: Does the patient meet any 2 criteria? No. Patient's initial sepsis screen is negative. Does the patient have a suspected source of infection? No. Patient's initial sepsis screen is negative. Risk Assessment: Do you want to hurt yourself or someone else? Patient reports no desire to harm self or others. Onset of symptoms was October 05, 2021. 04:36 Method Of Arrival: Ambulatory [facility] 04:36 Acuity: GEORGIE 4 5 Triage Assessment: 04:38 Headache History: The patient has had previous headaches and this one is different than [facility] previous episodes. General: Appears in no apparent distress. Behavior is cooperative. Pain: Complains of pain in head Pain currently is 10 out of 10 on a pain scale. Pain began 1 week ago Also complains of no other associated symptoms. EENT: Reports nasal congestion sore throat. Neuro: No deficits noted. Level of Consciousness is awake, alert, obeys commands, Oriented to person, place, time, situation. Cardiovascular: No deficits noted. Capillary refill < 3 seconds Patient's skin is warm and dry. Respiratory: Airway is patent Trachea midline Respiratory effort is even, unlabored. 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 Historical: - Allergies: 04:37 PENICILLINS; sm5 - PMHx: 04:37 Migraines; sm5 - PSHx: 04:37 section; 5 - Immunization history:: Client reports having NOT received the Covid vaccine. Flu vaccine is not up to date. - Social history:: Smoking status: Patient reports the use of cigarette tobacco products, denies chronic smoking, but will smoke occasionally. - Family history:: not pertinent. - Hospitalizations: : No recent hospitalization is reported. Screenin:33 Abuse screen: Denies threats or abuse. Nutritional screening: No deficits noted. sv1 Tuberculosis screening: No symptoms or risk factors identified. Fall Risk None identified. Vital Signs: 04:36 BP 169 / 114; Pulse 96; Resp 18; Temp 98.3(O); Pulse Ox 100% on R/A; Weight 77.11 kg; sm5 Height 5 ft. 0 in. (152.40 cm); Pain 10/10; 04:58 BP 162 / 107 LA Supine (auto/reg); Pulse 94 MON; Resp 16 S; Pulse Ox 100% on R/A; sv1 06:29 BP 144 / 87 RA Supine (auto/reg); Pulse 84 MON; Resp 16 S; Pulse Ox 99% on R/A; sv1 04:36 Body Mass Index 33.20 (77.11 kg, 152.40 cm) sm5 [place] Coma Score: 06:40 Eye Response: spontaneous(4). Verbal Response: oriented(5). Motor Response: obeys rn commands(6). Total: 15. ED Course: 04:19 Patient arrived in ED. ja2 04:25 Paul Evans, VICKY is Primary Nurse. sv1 04:26 Luke Loza MD is Attending Physician. rn 04:37 Triage completed. sm5 04:39 Arm band placed on right wrist. sm5 04:48 COVID-19/FLU A+B (Document "Date of Onset" if Symptomatic) Sent. sv1 05:33 Patient has correct armband on for positive identification. Bed in low position. Side sv1 rails up X2. Adult w/ patient. 06:56 No provider procedures requiring assistance completed. Patient did not have IV access sv1 during this emergency room visit. Administered Medications: 04:48 Drug: [place] (HYDROcodone-acetaminophen) 10 mg-325 mg 1 tabs Route: PO; sv1 06:56 Drug: Zithromax (azithromycin) 500 mg Route: PO; sv1 06:56 Follow up: Response: No adverse reaction sv1 Outcome: 06:41 Discharge ordered by . rn 06:56 Discharged to home sv1 06:56 Condition: improved 06:56 Discharge instructions given to patient, family. 06:57 Patient left the ED. sv1 Signatures: Luke Loza MD MD rn Alexander, Jessica ja2 Mazur, Leah, RN RN sm5 Paul Evans RN RN sv1
--- NOTE | 2021-10-12 06:42 | EDPHYS ---
Physician Documentation [facility] Name: Annelise Torres Age: 36 yrs Sex: Female : 1985 Arrival Date: 10/12/2021 Time: 04:19 Bed 23 Private MD: ED Physician Luke Loza HPI: 10/12 05:06 This 36 yrs old Female presents to ER via Ambulatory with complaints of rn Headache, Sinus Pain, Sore Throat. 05:06 The patient complains of pain to the forehead. The patient describes the headache as rn aching. Onset: The symptoms/episode began/occurred 3 day(s) ago. Associated signs and symptoms: Pertinent positives: congestion, sinus pressure, sore throat. Severity of symptoms: At its worst the pain was moderate, in the emergency department the pain is unchanged. The symptoms are alleviated by nothing. the symptoms are aggravated by nothing. The patient has not experienced similar symptoms in the past. The patient has not recently seen a physician. Pt reports 3 days of sinus pressure, headache, congestion, sore throat. No fever. No trauma. No sick contacts. . 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 Flu vaccine is not up to date. - Social history:: Smoking status: Patient reports the use of cigarette tobacco products, denies chronic smoking, but will smoke occasionally. - Family history:: not pertinent. - Hospitalizations: : No recent hospitalization is reported. ROS: 05:06 Constitutional: Negative for fever, chills, and weight loss, Eyes: Negative for injury, rn pain, redness, and discharge, ENT: Negative for injury, + congestion and sore throat Neck: Negative for injury, pain, and swelling, Cardiovascular: Negative for chest pain, palpitations, and edema, Respiratory: Negative for shortness of breath, cough, wheezing, and pleuritic chest pain, Abdomen/GI: Negative for abdominal pain, nausea, vomiting, diarrhea, and constipation, Back: Negative for injury and pain, : Negative for injury, bleeding, discharge, and swelling, MS/Extremity: Negative for injury and deformity, Skin: Negative for injury, rash, and discoloration, Neuro: Negative for weakness, numbness, tingling, and seizure Exam: 05:06 Constitutional: This is a well developed, well nourished patient who is awake, alert, rn and in no acute distress. Head/Face: Normocephalic, atraumatic. Eyes: Pupils equal round and reactive to light, extra-ocular motions intact. Periorbital areas with no swelling, redness, or edema. ENT: No stridor, mild pharyngeal erythema, no cervical LAD Neck: Trachea midline, no masses palpated, and no cervical lymphadenopathy. Supple, full range of motion without nuchal rigidity, or vertebral point tenderness. No Meningismus. Cardiovascular: Regular rate and rhythm. No pulse deficits. Respiratory: No increased work of breathing, no retractions or nasal flaring. Skin: Warm, dry MS/ Extremity: Pulses equal, no cyanosis. Neuro: Awake and alert, GCS 15, oriented to person, place, time, and situation. Cranial nerves II-XII grossly intact. Motor strength 5/5 in all extremities. Sensory grossly intact. Cerebellar exam normal. Normal gait. Vital Signs: 04:36 BP 169 / 114; Pulse 96; Resp 18; Temp 98.3(O); Pulse Ox 100% on R/A; Weight 77.11 kg; sm5 Height 5 ft. 0 in. (152.40 cm); Pain 10/10; 04:58 BP 162 / 107 LA Supine (auto/reg); Pulse 94 MON; Resp 16 S; Pulse Ox 100% on R/A; sv1 06:29 BP 144 / 87 RA Supine (auto/reg); Pulse 84 MON; Resp 16 S; Pulse Ox 99% on R/A; sv1 04:36 Body Mass Index 33.20 (77.11 kg, 152.40 cm) sm5 [place] Coma Score: 06:40 Eye Response: spontaneous(4). Verbal Response: oriented(5). Motor Response: obeys rn commands(6). Total: 15. MDM: 04:26 Patient medically screened. rn 06:40 Differential diagnosis: migraine, tension headache, vasomotor headache, sinus headache, rn sinusitis, viral syndrome. Data reviewed: vital signs, nurses notes, lab test result(s), and as a result, I will discharge patient. Counseling: I had a detailed discussion with the patient and/or guardian regarding: the historical points, exam findings, and any diagnostic results supporting the discharge/admit diagnosis, lab results, the need for outpatient follow up, to return to the emergency department if symptoms worsen or persist or if there are any questions or concerns that arise at home. Response to treatment: the patient's symptoms have markedly improved after treatment, and as a result, I will discharge patient. Special discussion: I discussed with the patient/guardian in detail that at this point there is no indication for admission to the hospital. It is understood, however, that if the symptoms persist or worsen the patient needs to return immediately for re-evaluation. ED course: Normal neuro exam, stable vitals, has hx of migraines, no signs of meningitis. Symptoms consistent with sinusitis and will treat as such. COVID/Flu/Strep neg, will dc home with abx and return precautions.. 10/12 04:34 Order name: COVID-19/FLU A+B (Document "Date of Onset" if Symptomatic); Complete Time: rn 06:40 10/12 04:34 Order name: Strep; Complete Time: 06:40 rn 10/12 06:40 Order name: Throat Culture EDMS Administered Medications: 04:48 Drug: [place] (HYDROcodone-acetaminophen) 10 mg-325 mg 1 tabs Route: PO; sv1 06:56 Drug: Zithromax (azithromycin) 500 mg Route: PO; sv1 06:56 Follow up: Response: No adverse reaction sv1 Disposition Summary: 10/12/21 06:41 Discharge Ordered Location: Home rn Problem: new rn Symptoms: have improved rn Condition: Stable rn Diagnosis - Acute sinusitis, unspecified rn - Headache rn Followup: rn - With: Private Physician - When: As needed - Reason: Recheck today's complaints, Re-evaluation by your physician Discharge Instructions: - Discharge Summary Sheet rn - General Headache Without Cause rn - Sinusitis, Adult rn Forms: - Medication Reconciliation Form rn - Thank You Letter rn - Antibiotic field kiln burner - Prescription Opioid Use rn Prescriptions: - Zithromax Z-Tomás 250 mg Oral Tablet - take 1 tablet by ORAL route as directed for 5 days Day 1 - take two (2) tablets rn one time. Day 2, 3, 4 , 5 take one (1) tablet once daily.; 6 tablet; Refills: 0, Product Selection Permitted Signatures: Dispatcher [employer] Luke Sommers MD MD rn Mazur, Sarah RN RN sm5 Paul Evans RN RN sv1
[2021-10-12] MEDS ORDERED: AZITHROMYCIN 250 MG TAB ONE (06:56)
[2021-10-12 07:09] VITALS: TEMP 98.3
[2021-10-12 07:11] VITALS: BP 144/87; O2SAT 99
== END 2021-10-12 06:57 | disposition home or self-care (01) ==
LOC: ER 04:16
DX: J01.90 Acute sinusitis, unspecified (principal); F17.210 Nicotine dependence, cigarettes, uncomplicated; Z88.0 Allergy status to penicillin; Z20.822 Contact with and (suspected) exposure to COVID-19
CPT/HCPCS: 0240U; 87070; 87081; 99283

== ENCOUNTER 2022-03-06 07:20 | Emergency (ER) | payer SELFPAY ==
[2022-03-06 07:46] LABS: Absolute Lymphocytes (CBC) 2.1 K/uL (0.7-4.9); Hematocrit 32.4 % (36.0-45.0); Lymphocytes % 33.2 % (15.3-44.8); MPV 8.7 fL (7.6-11.3); RBC Red Blood Cell Count 4.91 M/uL (3.86-4.86)
[2022-03-06] MEDS ORDERED: ONDANSETRON 4 MG/2 ML VIAL ONE (07:49)
[2022-03-06] MEDS ORDERED: MORPHINE 4 MG/ML SYR ONE (07:49)
[2022-03-06 08:11] LABS: Albumin 3.6 g/dL (3.4-5.0); Bilirubin Total 0.2 mg/dL (0.2-1.0); Potassium 3.8 mmol/L (3.5-5.1); Protein, Total 7.6 g/dL (6.4-8.2)
[2022-03-06] MEDS ORDERED: KETOROLAC 30 MG/ML INJ ONE (08:11)
[2022-03-06 08:21] LABS: Blood Morphology Comment NOTED (NOT SEEN); Platelet Estimate ADEQ; White Blood Cell Scan OK (OK)
[2022-03-06 08:22] LABS: Anisocytosis 1+; Hypochromasia 1+
--- NOTE | 2022-03-06 08:28 | RAD REPORT ---
EXAM DESCRIPTION: CT - Abdomen Pelvis Wo Contrast - 03/06/2022 7:45 am CLINICAL HISTORY: L flank pain, LLQ pain COMPARISON: No comparisons TECHNIQUE: Axial [address] imaging of the abdomen and pelvis was performed without IV contrast. No IV contrast was given because of allergy, abnormal renal function, patient refusal or physician re quest. No oral contrast administered. All CT scans are performed using dose optimization technique as appropriate and may include automated exposure control or mA/KV adjustment according to patient size. FINDINGS: No suspicious findings in the lung bases. The liver, spleen and pancreas show no suspicious findings on non-contrast imaging. Gallbladder and b iliary tree are also without suspicious finding. Mild hydronephrosis of the left renal pelvis and calices present secondary to a 3 mm stone at the UPJ . There is mild stranding or edema in the fat adjacent to the left renal pelvis and proximal ureter. A 2 mm nonobstructing calyx calcification is present in the posterior mid left kidney. No right-sided hydronephrosis. A 6 millimeter calcification is present in the mid right kidney. Patient also has ex tensive nephrocalcinosis with dense mineralization of the renal pyramids. No significant adrenal fin ding. Isodense renal masses and pyelonephritis cannot be excluded in the absence of IV contrast. The urinary bladder is without significant finding. Uterus and ovaries show no suspicious findings. No dilated bowel loops or bowel wall thickening. Appendix is normal. No free air, free fluid or infla mmatory stranding. No hernia, mass or bulky lymphadenopathy. No suspicious bony findings. IMPRESSION: Mild left-side hydronephrosis of the pelvis and calices secondary to a 3 mm stone at the left UPJ. Bilateral nonobstructing calyx calculi are present and the patient has a prominent bilateral nephroca lcinosis pattern with dense mineralization throughout the renal pyramids. Full assessment is limited is the absence of IV contrast.
--- NOTE | 2022-03-06 09:09 | EDPHYS ---
Physician Documentation [facility] Name: Annelise Torres Age: 36 yrs Sex: Female : 1985 Arrival Date: 03/06/2022 Time: 07:23 Bed 15 Private MD: ED Physician Mao Marquez HPI: 03/06 07:35 This 36 yrs old Female presents to ER via Unassigned with complaints of ms3 Abdominal Pain, Back Pain, Vomiting. 07:35 The patient presents with pain that is acute, with no known mechanism of injury. The ms3 symptoms are located in the Left flank. Onset: The symptoms/episode began/occurred acutely, 2 hour(s) ago. The pain radiates. Associated signs and symptoms: Pertinent positives: nausea, vomiting, Pertinent negatives: chest pain, dysuria, fever, headache, hematuria. The problem was sustained from unknown cause. Modifying factors: The patient symptoms are alleviated by nothing, the patient symptoms are aggravated by nothing. Severity of symptoms: At their worst the symptoms were severe, in the emergency department the symptoms are unchanged. Historical: - Allergies: 07:36 PENICILLINS; jh6 - PMHx: 07:36 Migraines; 6 - PSHx: 07:36 section; [facility] - Immunization history:: Adult Immunizations. - Social history:: Smoking status: Patient denies any tobacco usage or history of. ROS: 07:35 Constitutional: Negative for fever, and chills. Neck: Negative for injury, pain, and ms3 swelling, Cardiovascular: Negative for chest pain, and palpitations. Respiratory: Negative for shortness of breath, cough, wheezing, and pleuritic chest pain. 07:35 MS/Extremity: Negative for injury and deformity, Skin: Negative for injury, rash, and discoloration. 07:35 Abdomen/GI: Positive for abdominal pain, nausea and vomiting. 07:35 MS/extremity: Positive for back pain. 07:35 All other systems are negative. Exam: 07:35 Constitutional: This is a well developed, well nourished patient who is awake, alert, ms3 and in no acute distress. Head/Face: Normocephalic, atraumatic. Neck: Trachea midline, no cervical lymphadenopathy. Supple, full range of motion without nuchal rigidity, or vertebral point tenderness. No Meningismus. Chest/axilla: Normal chest wall appearance and motion. Nontender with no deformity. Cardiovascular: Regular rate and rhythm with a normal S1 and S2. No gallops, murmurs, or rubs. Normal PMI, no JVD. No pulse deficits. Respiratory: Lungs have equal breath sounds bilaterally, clear to auscultation and percussion. No rales, rhonchi or wheezes noted. No increased work of breathing, no retractions or nasal flaring. 07:35 Skin: Warm, dry with normal turgor. Normal color with no rashes, no lesions, and no evidence of cellulitis. MS/ Extremity: Pulses equal, no cyanosis. Neurovascular intact. Full, normal range of motion. Psych: Awake, alert, with orientation to person, place and time. Behavior, mood, and affect are within normal limits. 07:35 Abdomen/GI: Bowel sounds: normal, Palpation: moderate abdominal tenderness, in the left lower quadrant. Vital Signs: 07:35 BP 198 / 135; Pulse 94; Resp 17; Temp 98.1; Pulse Ox 100% ; Weight 77.11 kg; Height 5 jh6 ft. 0 in. (152.40 cm); Pain 10/10; 08:30 BP 155 / 74; Pulse 82; Resp 17; Pulse Ox 100% ; Pain 3/10; jh6 07:35 Body Mass Index 33.20 (77.11 kg, 152.40 cm) 6 MDM: 07:47 Patient medically screened. ms3 09:32 Differential diagnosis: Pyelonephritis Ureterolithiasis Diverticulitis. Data reviewed: ms3 vital signs, nurses notes, lab test result(s), radiologic studies, and as a result, I will discharge patient. Counseling: I had a detailed discussion with the patient and/or guardian regarding: the historical points, exam findings, and any diagnostic results supporting the discharge/admit diagnosis, lab results, radiology results, the need for outpatient follow up, to return to the emergency department if symptoms worsen or persist or if there are any questions or concerns that arise at home. ED course: Discussed labs, CT, physical exam findings with patient. Patient to follow-up with primary care physician in 2 to 3 days. Patient understands and agrees with plan. All questions were answered. Return precautions discussed include worsening symptoms, or any other concerns. On reevaluation patient is alert and oriented x4, in no apparent distress, nontoxic-appearing, speaking full sentences, ambulatory in emergency department.. 03/06 07:35 Order name: CBC with Diff; Complete Time: 09:13 ms3 03/06 07:35 Order name: CMP; Complete Time: 09:13 ms3 03/06 07:35 Order name: CT Abd/Pelvis - Without Contrast; Complete Time: 09:13 ms3 03/06 07:50 Order name: CBC Smear Scan; Complete Time: 09:13 EDMS 03/06 07:35 Order name: IV Saline Lock; Complete Time: 07:37 ms3 03/06 07:35 Order name: Labs collected and sent; Complete Time: 07:37 ms3 Administered Medications: 07:50 Drug: Zofran (Ondansetron) 4 mg Route: IVP; Site: right antecubital; 6 07:50 Drug: morphine 4 mg Route: IVP; Infused Over: 4 mins; Site: right antecubital; 6 08:00 Follow up: Response: Pain is unchanged, physician notified [facility] 08:10 Drug: Ketorolac 10 mg Route: IVP; Site: right antecubital; 6 08:44 Follow up: Response: Anxiety decreased 6 09:35 Follow up: Response: Anxiety decreased 6 Disposition Summary: 03/06/22 09:08 Discharge Ordered Location: Home ms3 Condition: Stable ms3 Diagnosis - Kidney stone ms3 - Left flank pain ms3 - nausea ms3 Followup: ms3 - With: Salomón Mcguire MD - When: 2 - 3 days - Reason: Recheck today's complaints Discharge Instructions: - Discharge Summary Sheet ms3 - Kidney Stones ms3 Forms: - Work release form eb - Medication Reconciliation Form ms3 - Thank You Letter ms3 - Antibiotic Education ms3 - Prescription Opioid Use ms3 Prescriptions: - Flomax 0.4 mg Oral capsule - take 1 capsule by ORAL route once daily 1/2 hour following the same meal each kb day; 15 capsule; Refills: 0, Product Selection Permitted - Tylenol-Codeine #3 300 mg-30 mg Oral - take 1 tablet by ORAL route every 4-6 hours; 18 tablet; Refills: 0, Product ms3 Selection Permitted - Ibuprofen 600 mg Oral Tablet - take 1 tablet by ORAL route every 6 hours As needed take with food; 30 tablet; ms3 Refills: 0, Product Selection Permitted Signatures: Dispatcher Mao Segovia, DO ms3 Annelise Nagel RN RN jh6
--- NOTE | 2022-03-06 09:09 | ER ---
Nurse's Notes [facility] Name: Annelise Torres Age: 36 yrs Sex: Female : 1985 Arrival Date: 03/06/2022 Time: 07:23 Bed 15 Private MD: Diagnosis: Kidney stone;Left flank pain;nausea Presentation: 03/06 07:35 Chief complaint: Patient states: l lower abd pain and flank pain that started this am \T\ jh6 0500. Coronavirus screen: Vaccine status: Patient reports being unvaccinated. Ebola Screen: Patient negative for fever greater than or equal to 101.5 degrees Fahrenheit, and additional compatible Ebola Virus Disease symptoms Patient denies exposure to infectious person. Patient denies travel to an Ebola-affected area in the 21 days before illness onset. Initial Sepsis Screen: Does the patient meet any 2 criteria? No. Patient's initial sepsis screen is negative. Does the patient have a suspected source of infection? No. Patient's initial sepsis screen is negative. Risk Assessment: Do you want to hurt yourself or someone else? Patient reports no desire to harm self or others. Onset of symptoms was March 06, 2022. 07:35 Method Of Arrival: Ambulatory [facility] 07:35 Acuity: GEORGIE 3 6 Triage Assessment: 07:44 General: Appears uncomfortable, Behavior is cooperative, crying. 6 Historical: - Allergies: 07:36 PENICILLINS; 6 - PMHx: 07:36 Migraines; 6 - PSHx: 07:36 section; 6 - Immunization history:: Adult Immunizations. - Social history:: Smoking status: Patient denies any tobacco usage or history of. Screenin:39 Abuse screen: Denies threats or abuse. Denies injuries from another. Nutritional [facility] screening: No deficits noted. Nutritional screening: No deficits noted. Tuberculosis screening: No symptoms or risk factors identified. Fall Risk Assessment: 07:38 General: Appears distressed, uncomfortable, Behavior is calm, cooperative. Pain: 6 Complains of pain in left lower quadrant Pain radiates to left mid back Pain currently is 10 out of 10 on a pain scale. Quality of pain is described as throbbing, Pain began suddenly, 2 hours ago. Is continuous. GI: Bowel sounds present X 4 quads. Abd is soft X 4 quads Abdomen is tender to palpation in left lower quadrant. 08:30 Pain: Complains of pain in left lower quadrant Pain currently is 3 out of 10 on a pain jh6 scale. 08:30 Reassessment: Patient and/or family updated on plan of care and expected duration. Pain jh6 level reassessed. Patient is alert, oriented x 3, equal unlabored respirations, skin warm/dry/pink. Patient states feeling better. 09:34 Pain: Pain currently is 2 out of 10 on a pain scale. jh6 Vital Signs: 07:35 BP 198 / 135; Pulse 94; Resp 17; Temp 98.1; Pulse Ox 100% ; Weight 77.11 kg; Height 5 jh6 ft. 0 in. (152.40 cm); Pain 10/10; 08:30 BP 155 / 74; Pulse 82; Resp 17; Pulse Ox 100% ; Pain 3/10; jh6 07:35 Body Mass Index 33.20 (77.11 kg, 152.40 cm) 6 ED Course: 07:23 Patient arrived in ED. mr 07:25 Mao Marquez DO is Attending Physician. ms3 07:34 Annelise Ngael, RN is Primary Nurse. jh6 07:36 Triage completed. jh6 07:37 Inserted saline lock: 20 gauge in right antecubital area, using aseptic technique. jh6 Blood collected. 07:[address] jh6 07:39 Placed in gown. Bed in low position. Call light in reach. Side rails up X 1. Adult w/ jh6 patient. 07:39 Arm band placed on left wrist. jh6 07:40 Initial lab(s) drawn, by ED staff, sent to lab. mb4 07:48 CT Abd/Pelvis - Without Contrast In Process Unspecified. EDMS 09:05 Salomón Mcguire MD is Referral Physician. ms3 09:35 IV discontinued, intact, bleeding controlled, No redness/swelling at site. Pressure jh6 dressing applied. Administered Medications: 07:50 Drug: Zofran (Ondansetron) 4 mg Route: IVP; Site: right antecubital; jh6 07:50 Drug: morphine 4 mg Route: IVP; Infused Over: 4 mins; Site: right antecubital; jh6 08:00 Follow up: Response: Pain is unchanged, physician notified jh6 08:10 Drug: Ketorolac 10 mg Route: IVP; Site: right antecubital; jh6 08:44 Follow up: Response: Anxiety decreased jh6 09:35 Follow up: Response: Anxiety decreased jh6 Outcome: 09:08 Discharge ordered by . ms3 09:35 Discharged to home ambulatory. jh6 09:35 Condition: improved 09:35 Discharge instructions given to patient, family, Instructed on discharge instructions, Demonstrated understanding of instructions, medications, Prescriptions given X 3. 09:35 Patient left the ED. jh6 Signatures: Dispatcher [employer] Yesy WarnerRubia mb4 Mao Marquez DO DO ms3 Annelise Nagel RN RN jh6 Corrections: (The following items were deleted from the chart) 09:34 09:33 Reassessment: Patient and/or family updated on plan of care and expected jh6 duration. Pain level reassessed. Patient is alert, oriented x 3, equal unlabored respirations, skin warm/dry/pink. Patient states feeling better. [facility] 09:34 09:33 Pain: Complains of pain in left lower quadrant Pain currently is 3 out of 10 on a 6 pain scale. 6
[2022-03-06 10:05] VITALS: TEMP 98.1; O2SAT 100
[2022-03-06 10:07] VITALS: BP 155/74
== END 2022-03-06 09:35 | disposition home or self-care (01) ==
LOC: ER 07:20
DX: N20.0 Calculus of kidney (principal); R11.0 Nausea; Z88.0 Allergy status to penicillin
CPT/HCPCS: 36415; 74176; 80053; 85025; 96374; 96375; 99284; J2405

== ENCOUNTER 2023-06-20 21:57 | Emergency (ER) | payer SELFPAY ==
--- OUTSIDE RECORDS SUMMARY | 2023-06-20 22:00 | XMS REPORT | Continuity of Care Document ---
:1985 Author Organization [facility] t Address [address] [place] [address] Care Team Providers Name Role Phone MIMA HILARIO Primary Care Physician Unavailable MIMA HILARIO Attending Clinician Unavailable CARLOS ANDINO Attending Clinician Unavailable [place] Carlos LAM Attending Clinician DIONNA DEAN Attending Clinician Unavailable AVELINA DEL ROSARIO Attending Clinician Unavailable Mima Morgan Attending Clinician [phone] Avelina Headley Attending Clinician Doctor Unassigned, [place] Attending Clinician Unavailable Trae Harrell Attending Clinician Unavailable Annelise Bergeron Attending Clinician ANNELISE FENG Attending Clinician Unavailable Payers Payer Name Policy Type Policy Number Effective Date Expiration Date S patoolga [id number] 2016 00:00:00 Problems Condition Condition Condition Status Onset Resolution Last Treating Co mments Source Name Details Category Date Date Treatment Clinician Date Other Other Disease Active Univers general general 2-04 [place] of counseling [place] and advice and advice 00 Sd dical for for Branch contracept contracept edita edita management management IUD IUD Disease Active Univers (intrauter (intrauter 04-01 it y of ine ine 00:00: [place] device) in device) in [address] Branch Encounter Encounter Disease Active Uni vers for IUD for IUD 04-01 ity of removal removal 00:00: [place] 00 Medical Branch IUD IUD Disease Active Univers (intrauter (intrauter 04-01 it y of ine ine 00:00: [place] device) in device) in [address] Branch Well woman Well woman Disease Active U nivers exam exam 2-16 ity of 00:00: [place] [facility] History of History of Disease Active U nivers anemia anemia 2-16 ity of 00:00: Medical Branch Irregular Irregular Disease Active Uni vers menstrual menstrual 2-16 ity of cycle cycle 00:00: Medical Branch Obesity Obesity Disease Active Overview: Univ ers (BMI (BMI 3-13 Formattin ity of 30-39.9) 30-39.9) 00:00: g of this Nixon as 00 note Medical might be Branch different from the original. 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 Utility Tobacco Tobacco Disease Active Univers use use 3-13 ity of disorder disorder 00:00: [place] [facility] Allergies, Adverse Reactions, Alerts Allergy Allergy Status Severity Reaction(s) Onset Inactive Treating Comm ents Source Name Type Date Date Clinician Penicill Propensi Active Hives Univer s ins ty to 04-01 ity of adverse 00:00: [place] reaction 00 Medical s Branch PENICILL Drug Active Hives Univers INS Class 04-01 ity of 00:00: [place] 00 Medical Branch Social History Social Habit Start Date Stop Date Quantity Comments Source History SDOH University o f Alcohol Frequency [place] M edical [facility] History SDIA University o f Alcohol Std Drinks [place] [facility] History SDIA University o f Alcohol Binge [place] [facility] Exposure to Not sure [place] of SARS-CoV-2 (event) [place] [facility] History of tobacco Cigarette Smoker University of use [facility] Alcohol intake 2021-11-24 2021-11-24 0 /d University of 00:00:00 00:00:00 [facility] Alcohol Comment 2020-02-04 2020-02-04 occasional Universit y of 00:00:00 00:00:00 [facility] Tobacco use and 2016-10-18 2016-10-18 Never used Universit y of exposure 00:00:00 00:00:00 [facility] Cigarettes smoked 2016-10-18 2016-10-18 Univers ity of current (pack per 00:00:00 00:00:00 [facility] ) - Reported Branch Cigarette 2016-10-18 2016-10-18 University of pack-years 00:00:00 00:00:00 [facility] Tobacco Comment 2012-11-12 2012-11-12 3 cigarettes per Uni versity of 00:00:00 00:00:00 day [facility] Sex Assigned At [birth year] Universit y of 00:00:00 00:00:00 [facility] Smoking Status Start Date Stop Date Source Current some day smoker 2016-10-18 00:00:00 [facility] Ordered Filled Start Stop Current Ordering Indication Dosage Frequency Signature Comments Components Source Medication Medication Date Date Medication? Clinician (SIG) Name Name ibuprofen 2021- No [id number] 600mg 600 mg, Univers (IBU) 11-25 Oral, ity of tablet 600 05:30: 04:38 ONCE, 1 [place] as mg 00 :00 dose, On Medical Sat Branch 11/25/21 at 0030, FRANCESCA acetaminoph 2021- No [id number] 650mg 650 mg, Univers en 11-25 Oral, ity of (TYLENOL) 05:30: 04:38 ONCE, 1 [place] tablet 650 00 :00 dose, On Medic al mg Sat Branch 11/25/21 at 0030, FRANCESCA cefTRIAXone 2021- No [id number] 1000mg 1,000 mg, Univers (ROCEPHIN) 11-25 Intramuscu it y of injection 05:00: 05:03 lar, ONCE, [place] 1,000 mg 00 :00 1 dose, On Medic al Sat Branch 11/25/21 at 0000, FRANCESCA
Re ason for Anti-Infec tive: Documented Infection< br>Documen selene Infection Site: Urine
D uration of Therapy: Other (see Comments) cefUROXime 2021-0 202- No [id number] 500mg Take 1 Univers 500 mg 3-25 04-05 tablet by ity of tablet 00:00: 04:59 mouth 2 [place] 00 :00 (two) [facility] daily for 10 days. norgestimat 2020-0 Yes [id number] 1{tbl} Take 1 Univers e-ethinyl 6-15 tablet by ity o f estradiol 00:00: mouth [place] (ORTHO 00 daily. [facility], ,) 0.18/0.215/ 0.25 mg-25 mcg tablet norgestimat 2020-0 Yes [id number] 1{tbl} Take 1 Univers e-ethinyl 6-15 tablet by ity o f estradiol 00:00: mouth [place] (ORTHO 00 daily. [facility], 28,) 0.18/0.215/ 0.25 mg-25 mcg tablet norgestimat 2020-0 Yes [id number] 1{tbl} Take 1 Univers e-ethinyl 6-15 tablet by ity o f estradiol 00:00: mouth [place] (ORTHO 00 daily. [facility], 28,) 0.18/0.215/ 0.25 mg-25 mcg tablet norgestimat 2020-0 Yes [id number] 1{tbl} Take 1 Univers e-ethinyl 6-15 tablet by ity o f estradiol 00:00: mouth [place] (ORTHO 00 daily. [facility], 28,) 0.18/0.215/ 0.25 mg-25 mcg tablet norgestimat 2020-0 Yes [id number] 1{tbl} Take 1 Univers e-ethinyl 6-15 tablet by ity o f estradiol 00:00: mouth [place] (ORTHO 00 daily. [facility], ,) 0.18/0.215/ 0.25 mg-25 mcg tablet No known No Univers medications [facility] No known No Univers medications [facility] No known No Univers medications ity of [facility] No known No Univers medications ity of [facility] Vital Signs Vital Name Observation Time Observation Value Comments Source Systolic blood 2021-11-25 04:06:00 145 mm[Hg] Univer sity of pressure [place] [facility] Diastolic blood 2021-11-25 04:06:00 82 mm[Hg] Unive rsity of pressure [facility] Heart rate 2021-11-25 04:06:00 88 /min Universi ty of [facility] Body temperature 2021-11-25 04:06:00 36.89 Liv Univ ersity of [facility] Respiratory rate 2021-11-25 04:06:00 20 /min Univ ersity of [facility] Body height 2021-11-25 04:06:00 152.4 cm Universi ty of [facility] Body weight 2021-11-25 04:06:00 77.111 kg Universi ty of [place] [facility] BMI 2021-11-25 04:06:00 33.20 kg/m2 Universi ty of [facility] Oxygen saturation in 2021-11-25 04:06:00 100 /min University of Arterial blood by [facility] Pulse oximetry Branch Systolic blood 2020-02-15 14:03:00 127 mm[Hg] Univer sity of pressure [facility] Branch Diastolic blood 2020-02-15 14:03:00 81 mm[Hg] Unive rsity of [facility] Heart rate 2020-02-15 14:03:00 108 /min Universi ty of [facility] Body temperature 2020-02-15 14:03:00 36.28 Liv Univ ersity of [facility] Branch Respiratory rate 2020-02-15 14:03:00 16 /min Univ ersity of [place] [facility] Body height 2020-02-15 14:03:00 152.4 cm Universi ty of [place] [facility] Body weight 2020-02-15 14:03:00 78.501 kg Universi ty of [place] [facility] BMI 2020-02-15 14:03:00 33.80 kg/m2 Universi ty of [place] [facility] Systolic blood 2020-02-15 14:03:00 127 mm[Hg] Univer sity of pressure [facility] Branch Diastolic blood 2020-02-15 14:03:00 81 mm[Hg] Unive rsity of pressure [place] [facility] Heart rate 2020-02-15 14:03:00 108 /min Universi ty of [facility] Body temperature 2020-02-15 14:03:00 36.28 Liv Univ ersity of [facility] Branch Respiratory rate 2020-02-15 14:03:00 16 /min Univ ersity of [facility] Body height 2020-02-15 14:03:00 152.4 cm Universi ty of [facility] Body weight 2020-02-15 14:03:00 78.501 kg Universi ty of [facility] Branch BMI 2020-02-15 14:03:00 33.80 kg/m2 Universi ty of [facility] Systolic blood 2020-02-04 15:09:00 138 mm[Hg] Univer sity of pressure [facility] Diastolic blood 2020-02-04 15:09:00 91 mm[Hg] Unive rsity of pressure [facility] Heart rate 2020-02-04 15:09:00 73 /min Universi ty of [facility] Body temperature 2020-02-04 15:09:00 36.33 Liv [facility] ersity of [facility] Respiratory rate 2020-02-04 15:09:00 16 /min Univ ersity of [facility] Body height 2020-02-04 15:09:00 152.4 cm Universi ty of [facility] Body weight 2020-02-04 15:09:00 79.578 kg Universi ty of [facility] BMI 2020-02-04 15:09:00 34.26 kg/m2 Universi ty of [facility] Procedures Procedure Date / Time Performing Clinician Source Performed URINALYSIS 2021-11-25 04:31:00 Carlos Andino [facility] ty of [facility] POCT TEST 2021-11-25 04:31:00 Carlos Andino [facility] NOTICE OF PRIVACY 2021-11-25 03:54:56 Doctor Unassigned, No [facility] Name Medical Branch CONSENT/REFUSAL FOR 2021-11-25 03:54:30 Doctor Unassigned, No [facility] DIAGNOSIS AND Name Medical Branch TREATMENT DISCLOSURE AND 2020-02-15 05:01:00 Doctor Unassigned, No [facility] CONSENT, MEDICAL AND Name Medical Bra [facility] SURGICAL PROCEDURES ASSIGNMENT OF BENEFITS 2020-02-04 14:48:18 Doctor Unassigned, No [facility] [place] Name Medical Branch Encounters Start End Encounter Admission Attending Care Care Encounter Source Date/Time Date/Time Type Type Clinicians Facility Department ID 2021-11-24 2021-11-25 Emergency X SINA [facility] ERT [id number] Univers 23:12:00 00:16:00 [facility] 2021-11-24 2021-11-25 [facility] [id number] Univers 23:12:00 00:16:00 [id number] [id number] [address] 2021-02-07 2021-02-07 Outpatient Ramos DEAN [facility] [id number] Univers 10:30:00 10:30:00 DIONNA parra [facility] 2021-02-07 2021-02-07 [facility] [id number] Univers 10:15:00 10:15:00 AVELINA parra o [facility] 2020-12-01 2020-12-01 Outpatient R YANELIS, [facility] [id number] Univers 10:30:00 10:30:00 MIMA parra o [facility] 2020-10-06 2020-10-06 Outpatient R YANELIS, [facility] [id number] Univers 15:45:00 15:45:00 MIMA parra o f [facility] 2020-05-24 2020-05-24 Telephone [facility] [id number] Univers 00:00:00 00:00:00 Mima Duff 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 FARMER [id number] ity [facility] [id number] [place] as MATERNAL [id number] Med ical & CHILD [address] [place] [address] 2020-05-10 2020-05-10 Outpatient Ramos DEL ROSARIO [facility] [id number] Univers 09:30:00 09:30:00 AVELINA parra o f [facility] 2020-02-15 2020-02-15 Office [facility] [id number] 08:43:54 09:49:43 [facility] [id number] REGIONAL [id number] MATERNAL [phone] & CHILD [address] [place] [address] 2020-02-15 2020-02-15 Office [facility] [id number] [facility] 08:43:54 09:49:43 [facility] [id number] ity of REGIONAL [id number] [place] as MATERNAL [id number] Med ical & CHILD [address] [place] [address] 2020-02-15 2020-02-15 Outpatient [facility] [id number] Univers 08:45:00 08:45:00 BOBBYA ity o f [facility] 2020-02-15 2020-02-15 Orders Doctor MICHAEL [id number] 00:00:00 00:00:00 Only Unassigned, HUMA [id number] [place] [facility] [id number] 2020-02-15 2020-02-15 Orders Doctor MICHAEL [id number] Univers 00:00:00 00:00:00 Only Unassigned, HUMA [id number] ity of [place] [facility] [id number] [place] as [id number] [address] 2020-02-12 2020-02-12 [facility] [id number] Univers 00:00:00 00:00:00 Mima C [employer]IR[employer] FARMER [id number] ity of [facility] [id number] [place] as MATERNAL [id number] [facility] & CHILD [address] [place] [address] 2020-02-08 2020-02-08 Outpatient Ramos DEL ROSARIO [facility] [id number] Univers 10:45:00 10:45:00 AVELINA ity o f [facility] 2020-02-04 2020-02-04 Office Provider, OdalisRmchp [facility] [id number] Univers 09:50:41 10:48:33 Visit Mima Hilario [employer]ARM[employer] [id number] 10 ity of Annelise Feng [facility] [id number] [place] MATERNAL [phone] Med ical & CHILD [address] [place] [address] 2020-02-04 2020-02-04 Outpatient R [facility] [id number] Univers 09:45:00 09:45:00 ity of [facility] 2020-02-04 2020-02-04 Outpatient R ELBA [facility] [id number] [facility] 09:45:00 09:45:00 ANNELISE meraz f [facility] 2020-02-04 2020-02-04 Orders Doctor MICHAEL [id number] Univers 00:00:00 00:00:00 Only Unassigned, HUMA [id number] ity of [place] [facility] [id number] [place] as [phone] [address] Results Test Description Test Time Test Comments Results Result Comments Source POCT TEST 2021-11-25 04:31:00 Test Item Value Reference Range Interpretation Comme nts POCT PREG (test code = 1605) negative On board controls acceptable with C Line (test code = 3574) present POCT PREG LOT # (test code = 3575) [id number] POCT PREG TEST DATE (test code = 3576) Lab Interpretation (test code = 15888-4) Normal [facility]
[2023-06-20 23:14] LABS: Specific Gravity 1.014 (1.005-1.030)
[2023-06-20 23:23] LABS: Specific Gravity 1.014 (1.005-1.030); Urine Bacteria <20 /HPF (<20); Urine Bilirubin NEGATIVE (Negative); Urine Blood Negative (Negative); Urine Clarity Extremely Turbid (Clear); Urine Color Colorless (Yellow); Urine Glucose 3+ (Negative); Urine Mucus Slight /HPF (None Seen); Urine Protein NEGATIVE (Negative); Urine RBC None Seen /HPF (None Seen); Urine Urobilinogen Normal (Normal)
[2023-06-20] MEDS ORDERED: NA CHLORIDE 0.9% 1,000 ML ONE (23:23)
[2023-06-20] MEDS ORDERED: KETOROLAC 30 MG/ML INJ ONE (23:23)
[2023-06-20 23:30] LABS: Absolute Lymphocytes (CBC) 2.8 K/uL (0.7-4.9); Hematocrit 32.6 % (36.0-45.0); Lymphocytes % 33.4 % (15.3-44.8); MCV 71.2 fL (80-100); MPV 8.7 fL (7.6-11.3); Platelets 267 thou/uL (152-406); RBC Red Blood Cell Count 4.59 M/uL (3.86-4.86)
[2023-06-20 23:31] LABS: Albumin 3.2 g/dL (3.4-5.0); Bilirubin Total 0.1 mg/dL (0.2-1.0); Potassium 3.6 mEq/L (3.5-5.1); Protein, Total 7.3 g/dL (6.4-8.2)
[2023-06-21] MEDS ORDERED: MORPHINE 4 MG/ML SYR ONE (00:16)
[2023-06-21] MEDS ORDERED: ONDANSETRON 4 MG/2 ML VIAL ONE (00:16)
--- NOTE | 2023-06-21 01:04 | EDPHYS ---
Physician Documentation [facility] Name: Annelise Torres Age: 37 yrs Sex: Female : 1985 Arrival Date: 06/20/2023 Time: 21:57 Bed 6 Private MD: ED Physician Marquez Thornton HPI: 06/21 01:54 This 37 yrs old Female presents to ER via Ambulatory with complaints of sb4 Abdominal Pain. 01:54 The patient presents with abdominal pain in the lower abdomen. sb4 01:56 Onset: The symptoms/episode began/occurred 1 week(s) ago. The symptoms radiate to the sb4 left flank. Associated signs and symptoms: Pertinent positives: nausea and vomiting, dysuria, vomiting. The patient has not experienced similar symptoms in the past. The patient has not recently seen a physician, and does not have an established primary care provider. 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 Flu vaccine is not up to date. - Social history:: Smoking status: Patient reports the use of cigarette tobacco products, denies chronic smoking, but will smoke occasionally, Patient uses alcohol, occasionally. Patient/guardian denies using street drugs. ROS: 06/21 01:56 Constitutional: Negative for fever, chills, and weight loss, sb4 Abdomen/GI: Positive for abdominal pain, nausea and vomiting, Back: Positive for flank pain, on the left, All other systems are negative, Exam: 01:56 Constitutional: This is a well developed, well nourished patient who is awake, alert, sb4 and in no acute distress. Head/Face: Normocephalic, atraumatic. Eyes: Extra-ocular motions intact. Periorbital areas with no swelling, redness, or edema. ENT: Mucous membranes moist. Cardiovascular: Regular rate and rhythm with a normal S1 and S2. Respiratory: Lungs have equal breath sounds bilaterally, clear to auscultation and percussion. No rales, rhonchi or wheezes noted. No increased work of breathing, no retractions or nasal flaring. Abdomen/GI: Soft, non-tender, no distension. Skin: Warm, dry with normal turgor. Normal color with no rashes, no lesions, and no evidence of cellulitis. MS/ Extremity: Pulses equal, no cyanosis. Neurovascular intact. Full, normal range of motion. Vital Signs: 06/20 22:15 BP 180 / 97; Pulse 101; Resp 17 S; Temp 98.2; Pulse Ox 100% on R/A; Weight 79.38 kg lg3 (R); Height 5 ft. 0 in. (R); Pain 8/10; 23:00 BP 162 / 84; Pulse 92; Resp 18 S; Pulse Ox 100% on R/A; jw7 06/21 00:00 BP 149 / 79; Pulse 88; Resp 19 S; Pulse Ox 100% on R/A; jw7 01:57 BP 163 / 98; Pulse 93; Resp 16; Pulse Ox 100% ; bp 06/20 22:15 Body Mass Index 34.18 (79.38 kg, 152.4 cm) lg3 06/20 22:15 Pain Scale: Adult lg3 MDM: 06/20 22:18 Patient medically screened. sb4 06/21 01:56 Differential diagnosis: diverticulitis, non-specific abd pain, Pyelonephritis, sb4 Ureterolithiasis, urinary tract infection. Data reviewed: vital signs, nurses notes, lab test result(s), radiologic studies, and as a result, I will discharge patient. Historians other than the Patient: Spouse/Significant Other: . Counseling: I had a detailed discussion with the patient and/or guardian regarding the historical points, exam findings, and any diagnostic results supporting the discharge/admit diagnosis, the presence of at least one elevated blood pressure reading (>120/80) during this emergency department visit, lab results, radiology results, the need for outpatient follow up, for definitive care, nephrology. Special discussion: I discussed with the patient the need to follow-up with the PCP/specialist for the noted incidental finding on X-ray/CT scanning. 06/20 22:21 Order name: CBC with Diff; Complete Time: 23:39 sb4 06/20 22:21 Order name: CMP; Complete Time: 23:39 sb4 06/20 22:21 Order name: Lipase; Complete Time: 23:39 sb4 06/20 22:21 Order name: Test, Urine; Complete Time: 23:39 sb4 06/20 22:21 Order name: UAM; Complete Time: 23:39 sb4 06/20 23:29 Order name: Urine Culture EDMS 06/20 22:21 Order name: CT Abd/Pelvis - IV Contrast Only; Complete Time: 02:12 sb4 06/20 22:21 Order name: IV Saline Lock; Complete Time: 23:07 sb4 06/20 22:21 Order name: Labs collected and sent; Complete Time: 23:07 sb4 Administered Medications: 06/20 23:13 Drug: NS 0.9% IV 1000 ml IV at 1 bolus Per protocol; 1000 mL bolus Route: IV; Rate: 1 me1 bolus; Site: right antecubital; 23:13 Drug: TORadol - Ketorolac IVP 15 mg IVP once Route: IVP; Site: right antecubital; me1 06/21 00:09 Drug: morphine IVP or IV 4 mg IVP once over 4 mins Route: IVP; Infused Over: 4 mins; bp Site: right antecubital; 00:09 Drug: Ondansetron IVP 4 mg IVP once; over 2 minutes Route: IVP; Site: right antecubital;bp 01:15 Drug: Rocephin IV 1 grams IV at calculated rate once; Given slow IV push per pharmacy jw7 instructions Route: IV; Rate: calculated rate; Site: right antecubital; 01:15 Drug: HYDROcodone-acetaminophen PO 5 mg-325 mg 2 tabs PO once Route: PO; jw7 Disposition Summary: 06/21/23 01:04 Discharge Ordered Notes: Location: Home sb4 Problem: an ongoing problem sb4 Symptoms: have improved sb4 Condition: Stable sb4 Diagnosis - UTI/ Urinary tract infection, site not specified sb4 - Nephrolithiasis sb4 Followup: sb4 - With: Juan Marino DO - When: As needed - Reason: Further diagnostic work-up, Recheck today's complaints, Re-evaluation by your physician Followup: sb4 - With: Shawn Gaming, DO - When: 2 - 3 days - Reason: Continuance of care Discharge Instructions: - Discharge Summary Sheet sb4 - Kidney Stones, Mjwd-ag-Begt sb4 - Urinary Tract Infection, Adult, Unyq-mm-Aniz sb4 - Hyperglycemia, Tmqs-xb-Sckj sb4 Forms: - Medication Reconciliation Form sb4 - Thank You Letter sb4 - Antibiotic Education sb4 - Prescription Opioid Use sb4 - Patient Portal Instructions sb4 - Leadership Thank You Letter sb4 Prescriptions: - acetaminophen-codeine 300-30 mg Oral tablet - take 1 tablet ORAL route every 6 hours as needed for pain; 20 tablet; Refills: sb4 0, Product Selection Permitted - Macrobid 100 mg Oral Capsule - take 1 capsule ORAL route every 12 hours for 7 days; 14 capsule; Refills: 0, sb4 Product Selection Permitted Addendum: 06/22/2023 02:12 Co-signature as Attending Physician, Marquez Thornton MD. e c2 Signatures: Dispatcher [employer] Drew Gtz, VICKY PERRY bp Karla Redmond RN RN lg3 Dianne Loyd RN RN jw7 Katherine Yousif PA-Omega PA-Omega sb4 Jazzmine Mendoza RN RN me1 Marquez Thornton MD MD ec2
--- NOTE | 2023-06-21 01:04 | ER ---
Nurse's Notes [facility] Name: Annelise Torres Age: 37 yrs Sex: Female : 1985 Arrival Date: 06/20/2023 Time: 21:57 Bed 6 Private MD: Diagnosis: UTI/ Urinary tract infection, site not specified;Nephrolithiasis Presentation: 06/20 22:15 Chief complaint: Patient states: lower abdominal/suprapubic pain/cramps radiating to lg3 left hip area X1 week and worsening. Coronavirus screen: Client denies travel out of the [place] in the last 14 days. At this time, the client does not indicate any symptoms associated with coronavirus-19. Ebola Screen: No symptoms or risks identified at this time. Initial Sepsis Screen: Does the patient meet any 2 criteria? No. Patient's initial sepsis screen is negative. Does the patient have a suspected source of infection? No. Patient's initial sepsis screen is negative. Risk Assessment: Do you want to hurt yourself or someone else? Patient reports no desire to harm self or others. Onset of symptoms is unknown. 22:15 Method Of Arrival: Ambulatory lg3 22:15 Acuity: GEORGIE 3 lg3 Triage Assessment: 22:17 General: Appears in no apparent distress. uncomfortable, Behavior is calm, cooperative. lg3 Pain: Complains of pain in suprapubic area, right lower quadrant and left lower quadrant Pain radiates to left iliac crest and left hip. EENT: No deficits noted. No signs and/or symptoms were reported regarding the EENT system. Neuro: No deficits noted. Beard Agitation-Sedation Scale (RASS): 0 - Alert and Calm Level of Consciousness is awake, alert, obeys commands, Oriented to person, place, time, situation. Cardiovascular: No deficits noted. Denies chest pain, shortness of breath, Capillary refill < 3 seconds Clubbing of nail beds is absent JVD is absent Patient's skin is warm and dry. Respiratory: No deficits noted. Airway is patent Respiratory effort is even, unlabored, Respiratory pattern is regular, symmetrical. GI: Abdomen is round distended, obese, Reports lower abdominal pain, cramping. : Reports cramping. Derm: No deficits noted. No signs and/or symptoms reported regarding the dermatologic system. Skin is intact, is healthy with good turgor, Skin is dry, Skin is normal, Skin temperature is warm. Musculoskeletal: No deficits noted. No signs and/or symptoms reported regarding the musculoskeletal system. Circulation, motion, and sensation intact. Range of motion: intact in all extremities. 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 Flu vaccine is not up to date. - Social history:: Smoking status: Patient reports the use of cigarette tobacco products, denies chronic smoking, but will smoke occasionally, Patient uses alcohol, occasionally. Patient/guardian denies using street drugs. Screenin:00 [facility] ED Fall Risk Assessment (Adult) History of falling in the last 3 months, jw7 including since admission No falls in past 3 months (0 pts) Score/Fall Risk Level 0 - 2 = Low Risk Oriented to surroundings, Maintained a safe environment. Abuse screen: Denies threats or abuse. Denies injuries from another. Nutritional screening: No deficits noted. Tuberculosis screening: No symptoms or risk factors identified. Assessment: 22:20 General: see triage assessment. [facility] 23:30 Reassessment: Patient appears in no apparent distress at this time. No changes from [facility] previously documented assessment. Patient and/or family updated on plan of care and expected duration. Pain level reassessed. Patient is alert, oriented x 3, equal unlabored respirations, skin warm/dry/pink. 06/21 00:15 Reassessment: Patient appears in no apparent distress at this time. Patient and/or jw7 family updated on plan of care and expected duration. Pain level reassessed. Patient is alert, oriented x 3, equal unlabored respirations, skin warm/dry/pink. 01:57 Reassessment: [facility] HOME AMBULATORY WITH FAMILY. bp Vital Signs: 06/20 22:15 BP 180 / 97; Pulse 101; Resp 17 S; Temp 98.2; Pulse Ox 100% on R/A; Weight 79.38 kg lg3 (R); Height 5 ft. 0 in. (R); Pain 8/10; 23:00 BP 162 / 84; Pulse 92; Resp 18 S; Pulse Ox 100% on R/A; jw7 06/21 00:00 BP 149 / 79; Pulse 88; Resp 19 S; Pulse Ox 100% on R/A; jw7 01:57 BP 163 / 98; Pulse 93; Resp 16; Pulse Ox 100% ; bp 06/20 22:15 Body Mass Index 34.18 (79.38 kg, 152.4 cm) lg3 06/20 22:15 Pain Scale: Adult lg3 ED Course: 06/20 22:01 Patient arrived in ED. gm2 22:02 Katherine Yousif PA-C is PHCP. sb4 22:02 Marquez Thornton MD is Attending Physician. sb4 22:17 Triage completed. lg3 22:17 Arm band placed on right wrist. lg3 22:22 Drew Forde, VICKY is Primary Nurse. bp 23:00 Patient has correct armband on for positive identification. Bed in low position. Call jw light in reach. 23:07 CBC with Diff Sent. me1 23:07 CMP Sent. me1 23:07 Lipase Sent. me1 23:07 Test, Urine Sent. me1 23:07 Inserted saline lock: 22 gauge in right antecubital area, using aseptic technique. me1 06/21 00:03 CT Abd/Pelvis - IV Contrast Only In Process Unspecified. EDMS 01:03 Juan Marino DO is Referral Physician. sb4 01:03 Shawn Gaming DO is Referral Physician. sb4 01:57 No provider procedures requiring assistance completed. IV discontinued, intact, bp bleeding controlled, No redness/swelling at site. Pressure dressing applied. Administered Medications: 06/20 23:13 Drug: NS 0.9% IV 1000 ml IV at 1 bolus Per protocol; 1000 mL bolus Route: IV; Rate: 1 me1 bolus; Site: right antecubital; 23:13 Drug: TORadol - Ketorolac IVP 15 mg IVP once Route: IVP; Site: right antecubital; me1 06/21 00:09 Drug: morphine IVP or IV 4 mg IVP once over 4 mins Route: IVP; Infused Over: 4 mins; bp Site: right antecubital; 00:09 Drug: Ondansetron IVP 4 mg IVP once; over 2 minutes Route: IVP; Site: right antecubital;bp 01:15 Drug: Rocephin IV 1 grams IV at calculated rate once; Given slow IV push per pharmacy jw7 instructions Route: IV; Rate: calculated rate; Site: right antecubital; 01:15 Drug: HYDROcodone-acetaminophen PO 5 mg-325 mg 2 tabs PO once Route: PO; jw7 Outcome: 01:04 Discharge ordered by . dodie 01:57 Discharged to home ambulatory, with family, bp 01:57 Condition: stable 01:57 Discharge instructions given to patient, Instructed on discharge instructions, follow up and referral plans. medication usage, Demonstrated understanding of instructions, follow-up care, medications, Prescriptions given X 2, 01:59 Patient left the ED. bp Signatures: Dispatcher [employer] EDDrew Travis RN RN bp Karla Redmond RN RN lg3 Dianne Loyd RN RN jw7 Katherine Yousif, PA-Omega PA-C sb4 Jazzmine Mendoza RN RN me1 Philly Jones gm2 Corrections: (The following items were deleted from the chart) 06/20 23:08 23:07 TORadol - Ketorolac IVP 15 mg IVP in right antecubital me1 me1
[2023-06-21] MEDS ORDERED: NA CHLORIDE 0.9% 100 ML ONE (01:08)
[2023-06-21] MEDS ORDERED: CEFTRIAXONE 1000 MG/VIAL ONE (01:08)
[2023-06-21] MEDS ORDERED: HYDROCODONE/APAP 5/325 MG TAB ONE (01:27)
[2023-06-21 02:06] VITALS: TEMP 98.2; O2SAT 100
[2023-06-21 02:10] VITALS: BP 163/98
--- NOTE | 2023-06-21 19:22 | RAD REPORT ---
EXAM DESCRIPTION: CT - Abdomen Pelvis W Contrast - 06/21/2023 1:45 am CLINICAL HISTORY: LOWER ABD PAIN TECHNIQUE: Axial computed tomography images of the abdomen and pelvis with intravenous contrast. S agittal and coronal reformatted images were created and reviewed. This CT exam was performed using one or more of the following dose reduction techniques: automated exposure control, adjustment of t he mA and/or kV according to patient size, and/or use of iterative reconstruction technique. COMPARISON: CT Abdomen Pelvis dated 03/06/2022 FINDINGS: Lung bases: Unremarkable. No mass. No consolidation. ABDOMEN: Liver: Unremarkable. No mass. Gallbladder and bile ducts: The gallbladder is contracted. No calcified stones. No ductal dilat ion. Pancreas: Unremarkable. No mass. No ductal dilation. Spleen: Unremarkable. No splenomegaly. Adrenals: Unremarkable. No mass. Kidneys and ureters: Bilateral medullary nephrocalcinosis and nephrolithiasis. Bilateral renal cy sts and additional subcentimeter hypodensities which are too small to characterize. No follow-up im aging is recommended. JACR 2018 Oct; 264-273, Management of the Incidental RenalMass on CT, [place] 2020; 814-846, Bosniak Classification of Cystic Renal Masses, Version 2019. There is a 1.9 c m cortical lesion at the medial upper to midpole of the left kidney which measures 46 Hounsfield unit s. No hydronephrosis. Stomach and bowel: Moderate stool. No bowel obstruction. No appreciable mucosal thickening. PELVIS: Appendix: Normal caliber appendix. No findings to suggest acute appendicitis. Bladder: Mild circumferential urinary bladder wall thickening. Reproductive: Unremarkable as visualized. ABDOMEN and PELVIS: Intraperitoneal space: Unremarkable. No free air. No significant fluid collection. Bones/joints: Mild multilevel spondylosis. No acute fracture. No dislocation. Soft tissues: Small fat-containing supraumbilical hernia. Vasculature: Unremarkable. No abdominal aortic aneurysm. Lymph nodes: Unremarkable. No enlarged lymph nodes. IMPRESSION: 1. Mild circumferential urinary bladder wall thickening. Please correlate clinically for cystitis. 2. Medullary nephrocalcinosis and nephrolithiasis. No renal obstruction. 3. Indeterminate 1.9 cm left renal lesion higher density than a simple cyst. No hemorrhagic or pr oteinaceous cyst in this region on the previous unenhanced study. Follow-up is recommended in order to exclude underlying solid mass/malignancy. 4. Other findings as above. Electronically signed by: Sudha Ohara MD 06/21/2023 12:41 AM CDT Due to temporary technical issues with the PACS/Fluency reporting system, reports are being signed by the in house radiologists without review as a courtesy to insure prompt reporting. The interpreting radiologist is fully responsible for the content of the report.
== END 2023-06-21 01:59 | disposition home or self-care (01) ==
LOC: ER 21:57
DX: N39.0 Urinary tract infection, site not specified (principal); N20.0 Calculus of kidney
CPT/HCPCS: 36415; 74177; 80053; 81001; 81025; 83690; 85025; 87086; 87088; 96374; 96375; 99284; J0696; J2405; J7030; Q9967